=== PATIENT | male | born 1975 | race Native Hawaiian/Other Pacific Islander ===

== ENCOUNTER 2017-07-12 11:41 | Inpatient (IN) | payer SELFPAY ==
[2017-07-12] VITALS (21 sets, daily range): BP systolic 99–128; BP diastolic 50–66; PULSE 74–96; RESP 14–28; TEMP 97.6–98.8; O2SAT 97–100
[~2017-07-12] VITALS: Ht 175.3 cm; Wt 76.9 kg
[~2017-07-12 11:41] MED LIST: HYDR-3133; POLY10O LEFT EYE; ULTR50TA PO
[2017-07-12] MEDS ORDERED: SIMV5TAB3 PO (12:06)
[2017-07-12] MEDS ORDERED: VIT D (12:06)
[2017-07-12] MEDS ORDERED: METF1000 PO (12:06)
[2017-07-12] MEDS ORDERED: LISI2.5T3 PO (12:06)
[2017-07-12] MEDS ORDERED: HYDR12.57 PO (12:06)
[2017-07-12] MEDS ORDERED: SODIUM CHLOR 0.9% 1000 ML INJ 1,000 ML IV SCH (12:13)
[2017-07-12] MEDS ORDERED: SODIUM CHLORIDE 0.9% FLUSH 10 ML FLUSH IVF PRN (12:15)
--- NOTE | 2017-07-12 12:22 | PD ---
HPI Chief Complaint: GI Complaint Time Seen by Provider: 11:51 Travel History International Travel<30 days: No Contact w/Intl Traveler<30days: No Traveled to known affect area: No History of Present Illness HPI STATES ONGOING EPISODES OF BLACK TARRY STOOLS OVER LAST 2 WEEKS BUT IT WAS INTERMITTENT AND WOULD RESOLVE...HOWEVER OVER LAST 2-3 DAYS C/O BLACK TARRY STOOLS HAVE BEEN MORE PERSISTENT OVER THE PAST FEW DAYS AND NOW HAS STARTED TO DEVELOP LIGHTHEADEDNESS AND GENERALIZED WEAKNESS PER PATIENT, STATES THAT HE HAS H/O HEMORRHOIDS, BUT THAT IT HAS NOT BEEN BRIGHT RED RECENTLY. DENIES FEVER /NUR/CP AT THIS POINT...NO ALLEVIATING/AGGRAVATING FACTORS PFSH Past Medical History Anxiety: Yes High Cholesterol: Yes Diabetes: Yes Patient Takes Glucophage: Yes Diminished Hearing: No GERD: Yes Hypertension: Yes Tetanus Vaccination: < 5 Years Influenza Vaccination: No Social History Alcohol Use: Yes (4 MIXED DRINKS DAILY) Tobacco Use: No Substance Use: No Allergies-Medications (Allergen,Severity, Reaction): Coded Allergies: No Known Allergies (Verified , 07/12/17) Reported Meds & Prescriptions Reported Meds & Active Scripts Active Reported [Vit D] Metformin (Metformin HCl) 1,000 Mg Tab Unknown Dose PO DIRECTED Simvastatin 5 Mg Tab Unknown Dose PO DAILY Lisinopril 2.5 Mg Tab Unknown Dose PO DAILY Hydrochlorothiazide 12.5 Mg Cap Unknown Dose PO DIRECTED Review of Systems Except as stated in HPI: all other systems reviewed are Neg HENT: Positive: Lightheadedness Gastrointestinal: Positive: Abdominal Pain, Other (BLACK TARRY STOOL) Physical Exam Narrative GENERAL: SKIN: Warm and dry. HEAD: Atraumatic. Normocephalic. EYES: Pupils equal and round. No scleral icterus. No injection or drainage. ENT: No nasal bleeding or discharge. Mucous membranes pink and moist. NECK: Trachea midline. No JVD. CARDIOVASCULAR: Regular rate and rhythm. RESPIRATORY: No accessory muscle use. Clear to auscultation. Breath sounds equal bilaterally. GASTROINTESTINAL: Abdomen soft, non-tender, nondistended. MARCUS SHEPARD IN ROOM FOR RECTAL EXAM: FOUND INTACT HEMORRHOID, WITHOUT THROMBUS NOR ANY ACTIVE BLEEDING FROM HEMORRHOID..GUAIAC POSITIVE WITHOUT HEMATOCHEZIA MUSCULOSKELETAL: Extremities without clubbing, cyanosis, or edema. No obvious deformities. NEUROLOGICAL: Awake and alert. No obvious cranial nerve deficits. Motor grossly within normal limits. Five out of 5 muscle strength in the arms and legs. Normal speech. PSYCHIATRIC: Appropriate mood and affect; insight and judgment normal. Data Data Last Documented VS Orders Orders Complete Blood Count With Diff (07/12/17 12:13) Comprehensive Metabolic Panel (07/12/17 12:13) Lipase (07/12/17 12:13) Prothrombin Time / Inr (Pt) (07/12/17 12:13) Act Partial Throm Time (Ptt) (07/12/17 12:13) Type And Screen (07/12/17 12:13) Ecg Monitoring (07/12/17 12:13) Iv Access Insert/Monitor (07/12/17 12:13) Oximetry (07/12/17 12:13) Sodium Chlor 0.9% 1000 Ml Inj (Ns 1000 M (07/12/17 12:13) Sodium Chloride 0.9% Flush (Ns Flush) (07/12/17 12:15) Ct Abd/Pel W/O Iv Contrast (07/12/17 12:13) Red Blood Cells (Rbc) (07/12/17 12:46) Blood Product Administration (07/12/17 12:46) Sodium Chlor 0.9% 250 Ml Inj (Ns 250 Ml (07/12/17 13:00) Hydromorphone Pf Inj (Dilaudid Pf Inj) (07/12/17 13:00) Ondansetron Inj (Zofran Inj) (07/12/17 13:00) Sodium Chlor 0.9% 1000 Ml Inj (Ns 1000 M (07/12/17 13:00) Sodium Chloride 0.9... W/Pantoprazole In (07/12/17 13:07) Sodium Chloride 0.9... W/Pantoprazole In (07/12/17 13:07) Admit Order (Ed Use Only) (07/12/17 14:18) Labs Laboratory Tests Test 07/12/17 12:15 White Blood Count 5.4 TH/MM3 Red Blood Count 2.48 MIL/MM3 Hemoglobin 5.2 GM/DL Hematocrit 16.9 % Mean Corpuscular Volume 68.2 FL Mean Corpuscular Hemoglobin 21.1 PG Mean Corpuscular Hemoglobin Concent 31.0 % Red Cell Distribution Width 18.2 % Platelet Count 138 TH/MM3 Mean Platelet Volume 6.9 FL Neutrophils (%) (Auto) 67.9 % Lymphocytes (%) (Auto) 17.8 % Monocytes (%) (Auto) 12.4 % Eosinophils (%) (Auto) 1.0 % Basophils (%) (Auto) 0.9 % Neutrophils # (Auto) 3.6 TH/MM3 Lymphocytes # (Auto) 1.0 TH/MM3 Monocytes # (Auto) 0.7 TH/MM3 Eosinophils # (Auto) 0.1 TH/MM3 Basophils # (Auto) 0.0 TH/MM3 CBC Comment AUTO DIFF Differential Comment AUTO DIFF CONFIRMED Platelet Estimate LOW Platelet Morphology Comment NORMAL Blood Smear Pathologist Review Haptoglobin 147 MG/DL Prothrombin Time 11.5 SEC Prothromb Time International Ratio 1.0 RATIO Activated Partial Thromboplast Time 24.8 SEC Blood Urea Nitrogen 21 MG/DL Creatinine 1.70 MG/DL Random Glucose 93 MG/DL Total Protein 8.6 GM/DL Albumin 3.6 GM/DL Calcium Level 8.6 MG/DL Alkaline Phosphatase 121 U/L Aspartate Amino Transf (AST/SGOT) 69 U/L Alanine Aminotransferase (ALT/SGPT) 24 U/L Total Bilirubin 1.0 MG/DL Sodium Level 128 MEQ/L Potassium Level 2.8 MEQ/L Chloride Level 91 MEQ/L Carbon Dioxide Level 23.6 MEQ/L Anion Gap 13 MEQ/L Estimat Glomerular Filtration Rate 44 ML/MIN Phosphorus Level 2.8 MG/DL Magnesium Level 1.9 MG/DL Iron Level 20 MCG/DL Total Iron Binding Capacity 561 MCG/DL Percent Iron Saturation 3.6 % Ferritin 10 NG/ML Lactate Dehydrogenase 159 U/L Lipase 866 U/L Vitamin B12 Level 385 PG/ML Folate 6.8 NG/ML MDM Medical Decision Making Medical Screen Exam Complete: Yes Emergency Medical Condition: Yes Medical Record Reviewed: Yes Differential Diagnosis COLITIS V DIVERTIC V GI BLEED Narrative Course PATIENT WAS STARTED ON PPI DRIP, AND ONCE FOUND TO BE ANEMIC, TYPE AND CROSSED URGENTLY AND ORDERED TO RECEIVE TRANSFUSION, PATIENT WAS GIVEN IVF BOLUS TO MAINTAIN AND IMPROVE HIS SLOWLY DROPPING BLOOD PRESSURE. Critical Care Narrative CRITICAL CARE NOTE: With evaluation of the patient, labs, EKG, receipt of radiologic studies, administration of medications, reevaluation the patient and discussion of the patient with the admitting physicians, the total critical care time was [60] minutes. Time to perform other separately billable procedures was not included in the critical care time. Diagnosis Primary Impression: GI BLEED Additional Impression: SEVERE SYMPTOMATIC ANEMIA Admitting Information Admitting Physician Requests: Admit Dipesh Saleh MD Jul 12, 2017 12:22
[2017-07-12 12:29] LABS: AUTOMATED NEUTROPHIL # 3.6 TH/MM3 (1.8-7.7); BASOPHIL % 0.9 % (0.0-2.0); EOSINOPHIL # 0.1 TH/MM3 (0-0.4); LYMPH % 17.8 % (9.0-44.0); MEAN CELL VOLUME 68.2 FL (80.0-100.0); MEAN CORPUSCULAR HEMOGLOBIN 21.1 PG (27.0-34.0); MONO % 12.4 % (0.0-8.0); NEUT % 67.9 % (16.0-70.0); PLATELET COUNT 138 TH/MM3 (150-450); RED BLOOD COUNT 2.48 MIL/MM3 (4.50-5.90); RED CELL DISTRIBUTION WIDTH 18.2 % (11.6-17.2); WHITE BLOOD COUNT 5.4 TH/MM3 (4.0-11.0)
[2017-07-12 12:32] LABS: HEMO FLAGS AUTO DIFF
[2017-07-12 12:34] LABS: CHLORIDE 91 MEQ/L (98-107); SODIUM (NA) 128 MEQ/L (136-145)
[2017-07-12 12:35] LABS: HEMATOCRIT 16.9 % (39.0-51.0)
[2017-07-12 12:37] LABS: APTT (PATIENT) 24.8 SEC (24.3-30.1); POTASSIUM 2.8 MEQ/L (3.5-5.1); PROTHROMBIN TIME - PATIENT 11.5 SEC (9.8-11.6)
[2017-07-12 12:43] LABS: ALT (GPT) 24 U/L (12-78); ANION GAP 13 MEQ/L (5-15); AST (GOT) 69 U/L (15-37); BICARBONATE 23.6 MEQ/L (21.0-32.0); BLOOD UREA NITROGEN 21 MG/DL (7-18); GLOMERULAR FILTRATION RATE 44 ML/MIN (>89)
[2017-07-12 12:46] LABS: ALKALINE PHOSPHATASE 121 U/L (45-117)
[2017-07-12] MEDS ORDERED: SODIUM CHLOR 0.9% 1000 ML INJ 1,000 ML IV ONE (13:00)
[2017-07-12] MEDS ORDERED: SODIUM CHLOR 0.9% 250 ML INJ 250 ML IV ONE (13:00)
[2017-07-12] MEDS ORDERED: HYDROmorphone HCL PF 1 MG/ML VIAL IV PUSH ONE (13:00)
[2017-07-12] MEDS ORDERED: ONDANSETRON HCL 4 MG/2 ML VIAL IV PUSH ONE (13:00)
[2017-07-12 13:02] LABS: PLATELET ESTIMATE SMEAR LOW (NORMAL); PLATELET MORPHOLOGY NORMAL (NORMAL); SCAN/DIFF AUTO DIFF CONFIRMED
[2017-07-12] MEDS ORDERED: PANTOPRAZOLE INJ 80 MG in SODIUM CHLORIDE 0.9% INJ 35 ML IV ONE (13:07)
--- NOTE | 2017-07-12 13:42 | RADRPT ---
EXAM DATE/TIME: 07/12/2017 13:20 [facility] COMPARISON: No previous studies available for comparison. INDICATIONS : Diffuse abdominal pain, weakness, and dark stool. ORAL CONTRAST: No oral contrast ingested. RADIATION DOSE: 9.44 CTDIvol (mGy) MEDICAL HISTORY : Hypertension. Gastroesophageal reflux disease. Diabetes. SURGICAL HISTORY : None. ENCOUNTER: Initial ACUITY: 2 weeks PAIN SCALE: 6/10 LOCATION: Bilateral abdomen TECHNIQUE: Volumetric scanning of the abdomen and pelvis was performed. Using automated exposure control and ad justment of the mA and/or kV according to patient size, radiation dose was kept as low as reasonably achievable to obtain optimal diagnostic quality images. DICOM format image data is available electro nically for review and comparison. FINDINGS: Lung bases are clear. There is moderate fatty replacement to the liver. The spleen, pancreas and adrenals unremarkable. Right and left kidneys appear normal. The region of the cecum and terminal ileum are unremarkable. Pelvic contents are unremarkable. Review of bone windows reveals mild degenerative changes in the lumbar spine. CONCLUSION: Mild fatty replacement to the liver. There is no free air or obstruction. I see no suspicious abdominal masses. Fernando Waller MD FACR on July 12, 2017 at 13:27 Board Certified Radiologist. This report was verified electronically.
[2017-07-12] MEDS: PANTOPRAZOLE INJ 80 MG in SODIUM CHLORIDE 0.9% INJ 100 ML IV SCH ×2 (14:34→23:30)
--- NOTE | 2017-07-12 14:53 | PD.PN.STU ---
Subjective Remarks History and Physical CC: GI Bleed HPI: 42yo male who was brought in the ER by his two cousins for progressive fatigue, weakness, low blood pressure, lightheadedness, and "dark red stools with light red streaks" for the last 2 1/2 weeks. He reports worsening of symptoms in the last 2 days which prompted his cousins to bring him to the ER. Pt. is on medication for hypertension but decided to hold them for the last 2days due to low blood pressure. Pt reports lightheadedness especially triggered by moving and head movements. Pt reports nausea, decreased appetite and subjectively reports slimming 4 clothing sizes down (unintentional). His cousins report a 40lb weight loss in the last 3-4mo as well. Pt reports cough with clear sputum and chills. Denies NUR, chest pain, SOB, fever, vomiting, blood in sputum and urine. He has abdominal pain vaguely described aggravating or relieving factors, but level 6 and not better with Prilosec. PMH: hypertension, depression, dyslipidemia, diabetes mellitus type 2 PSH: colonoscopy in December 2015 with a colonic tear and upper endoscopy [address] Bolaños FH: mother is living with HTN, DM 2, dyslipidemia. father is living with HTN and dyslipidemia SH: smoked 1ppd for 15 yrs quit 4yrs ago. Consumes 4 mixed drinks/day, cut down from 6/day. Lives by himself. Recent travel to [facility] in April. Meds: Xanax, HCTZ, simvastatin, lisinopril, metformin, vit D supplements Allergies: NKDA Objective Vitals Vital Signs Date Time Temp Pulse Resp B/P (MAP) Pulse Ox O2 Delivery O2 Flow Rate FiO2 07/12/17 14:16 86 16 112/51 (71) 99 Room Air 07/12/17 13:48 80 16 120/63 (82) 97 Room Air 07/12/17 12:49 84 16 100/53 (69) 07/12/17 12:17 100 Room Air 07/12/17 11:45 98.0 93 16 99/54 (69) 100 I/O 07/11/17 07/11/17 07/11/17 07/12/17 07/12/17 07/12/17 07:00 15:00 23:00 07:00 15:00 23:00 Intake Total 1110 ml Balance 1110 ml Intake IV Total 1110 ml Result Diagram: 07/12/17 1215 07/12/[address] abd pelvis shows fatty liver Objective Remarks GENERAL: pleasant, well-developed male who appeared tired but was in no acute distress SKIN: Warm and dry. HEAD: Atraumatic. Normocephalic. EYES: STEFANIA, EOMI. Mild scleral icterus, pale conjunctiva. No injection or drainage. ENT: No nasal bleeding or discharge. Mucous membranes pink and moist. NECK: Trachea midline. No JVD. CARDIOVASCULAR: Regular rate and rhythm with no murmurs, gallops, or rubs. RESPIRATORY: CTAB. No accessory muscle use. GASTROINTESTINAL: Abdomen soft, non-tender, nondistended. MUSCULOSKELETAL: Pale nail beds. Capillary refill within 2s. No edema. No obvious deformities. NEUROLOGICAL: Awake and alert. No obvious cranial nerve deficits. Motor grossly within normal limits. Normal speech. PSYCHIATRIC: Appropriate mood and affect; insight and judgment normal. A/P Assessment and Plan 1. Anemia- secondary to GI bleed/acute blood loss, IV fluid resuscitation, blood transfusion, follow Hb, consult GI for endoscopy, start PPI, NPO 2. Elevated lipase- will follow nonspecific, cont bowel rest, repeat lipase 3. Elevated LFT's- poss to alcohol use, hepatitis, gallstones. order hep panel, follow labs 4. Hypokalemia- replace and follow trend, add Mg 5. Hyponatremia- cont IV fluids, follow trend 6. Hypotension- poss from dehydration, cont IV fluids, cont to hold hypertension medication 7. Acute kidney injury- poss prerenal, cont hydration, to follow if no improvement further w/u to follow 8. Abdominal pain- cont IV narcotics for pain, w/u in progress 9. Alcohol abuse- pt advised to discontinue alcohol, ciwa protocol 10. DM type 2- place on SSI, monitor blood glucose levels while NPO, Medical Decision Making Impression and Plan The exam, history, and the medical decision-making described in the above note were completed with the assistance of the student. I reviewed and agree with the findings presented. I attest that I had a [id number] encounter with the patient on the same day, and personally performed and documented my assessment and findings in the medical record. ER MD Rectal + guaiac, on my exam no gross bleeding, no fissure discussed with patient, ER MD, Family and FISH SMOKER Karly Lama M3 Jul 12, 2017 14:53 Almaz Hussein MD Jul 12, 2017 15:59
[2017-07-12] MEDS ORDERED: LORazepam 1 MG TAB PO PRN (15:45)
[2017-07-12] MEDS ORDERED: GLUCAGON 1 MG/ML VIAL OTHER PRN (15:45)
[2017-07-12] MEDS ORDERED: DEXTROSE 50% IN WATER 50 ML VIAL(D50) IV PUSH PRN (15:45)
[2017-07-12] MEDS ORDERED: FLUMAZENIL 0.5 MG/5 ML VIAL IV PUSH PRN (15:45)
[2017-07-12] MEDS ORDERED: LORazepam 2 MG/ML VIAL IV PUSH PRN ×4 (15:45)
[2017-07-12] MEDS ORDERED: LORazepam 2 MG TAB PO PRN (15:45)
[2017-07-12 16:13] LABS: MAGNESIUM 1.9 MG/DL (1.5-2.5)
[2017-07-12] MEDS ORDERED: POTASSIUM PHOSPHATE INJ 30 MMOL in SODIUM CHLOR 0.9% 250 ML INJ 250 ML IV ONE (17:00)
[2017-07-12] MEDS: HYDROmorphone HCL PF 1 MG/ML VIAL IV PUSH PRN ×2 (17:06→21:53)
[2017-07-12] MEDS ORDERED: CHLORHEXIDINE GLUCONATE 2 % 1 PACK (2 CLOTHS)(extra cloths) TOPICAL PRN (22:45)
[2017-07-13] VITALS (21 sets, daily range): BP systolic 100–141; BP diastolic 59–79; PULSE 69–96; RESP 16–28; TEMP 97.6–98.6; O2SAT 98–99
[2017-07-13] MEDS ORDERED: POTASSIUM CHLORIDE 20 MEQ CONTROLLED RELEASE TAB PO ONE
[2017-07-13] MEDS ORDERED: hydrOXYzine HCL 10 MG TAB PO ONE
[2017-07-13] MEDS: SODIUM CHLOR 0.9% 1000 ML INJ 1,000 ML IV SCH ×3 (00:14→16:16)
[2017-07-13] MEDS: POTASSIUM CHLOR 20 MEQ PREMIX 100 ML IV SCH ×2 (00:14→02:12)
[2017-07-13] MEDS: HYDROmorphone HCL PF 1 MG/ML VIAL IV PUSH PRN ×6 (02:11→22:26)
[2017-07-13 02:27] LABS: AUTOMATED NEUTROPHIL # 3.9 TH/MM3 (1.8-7.7); BASOPHIL % 0.7 % (0.0-2.0); EOSINOPHIL % 0.8 % (0.0-4.0); HEMATOCRIT 24.8 % (39.0-51.0); LYMPH % 11.8 % (9.0-44.0); LYMPHOCYTE # 0.6 TH/MM3 (1.0-4.8); MEAN CELL VOLUME 76.8 FL (80.0-100.0); MEAN CORPUSCULAR HEMOGLOBIN 24.9 PG (27.0-34.0); MEAN CORPUSCULAR HGB CONC 32.5 % (32.0-36.0); MONO % 10.5 % (0.0-8.0); NEUT % 76.2 % (16.0-70.0); PLATELET COUNT 116 TH/MM3 (150-450); RED BLOOD COUNT 3.23 MIL/MM3 (4.50-5.90); RED CELL DISTRIBUTION WIDTH 21.1 % (11.6-17.2)
[2017-07-13 02:45] LABS: HEMO FLAGS AUTO DIFF
[2017-07-13 03:16] LABS: OVALOCYTES 1+ (NORMAL); PLATELET ESTIMATE SMEAR LOW (NORMAL); PLATELET MORPHOLOGY NORMAL (NORMAL); SCAN/DIFF AUTO DIFF CONFIRMED
[2017-07-13 03:20] LABS: LDH SERUM 159 U/L (87-241); TRANSFERRIN IRON PROFILE 401 MG/DL (200-360)
[2017-07-13 03:45] LABS: FERRITIN 10 NG/ML (26-388)
[2017-07-13] MEDS: CHLORHEXIDINE GLUCONATE 2 % 1 PACK (2 CLOTHS)(taper/protocol) TOPICAL SCH (04:00)
[2017-07-13 06:55] LABS: AUTOMATED NEUTROPHIL # 3.7 TH/MM3 (1.8-7.7); BASOPHIL % 0.5 % (0.0-2.0); EOSINOPHIL # 0.1 TH/MM3 (0-0.4); EOSINOPHIL % 1.1 % (0.0-4.0); HEMATOCRIT 24.2 % (39.0-51.0); LYMPHOCYTE # 0.8 TH/MM3 (1.0-4.8); MEAN CELL VOLUME 78.5 FL (80.0-100.0); MEAN CORPUSCULAR HEMOGLOBIN 25.9 PG (27.0-34.0); MONO % 10.4 % (0.0-8.0); PLATELET COUNT 106 TH/MM3 (150-450); RED BLOOD COUNT 3.08 MIL/MM3 (4.50-5.90); RED CELL DISTRIBUTION WIDTH 21.4 % (11.6-17.2); WHITE BLOOD COUNT 5.1 TH/MM3 (4.0-11.0)
[2017-07-13 06:56] LABS: BICARBONATE 25.9 MEQ/L (21.0-32.0); MAGNESIUM 1.9 MG/DL (1.5-2.5); POTASSIUM 4.4 MEQ/L (3.5-5.1)
[2017-07-13 07:10] LABS: HEMO FLAGS DIFF FINAL
[2017-07-13] MEDS ORDERED: INFLUENZA VIRUS VACCINE (QUADRIVALENT) 0.5 ML SYR IM ONE (10:00)
[2017-07-13] MEDS: PANTOPRAZOLE INJ 80 MG in SODIUM CHLORIDE 0.9% INJ 100 ML IV SCH ×2 (10:09→21:27)
--- NOTE | 2017-07-13 10:14 | PD.PN.STU ---
Subjective Remarks Pt is a 42y M who was brought in to the ER on 07/12/17 by his cousins due to fatigue, weakness, and blood in the stools. Pt received fluid and blood resuscitation (3 units of pRBC) last night and reports feeling better (hg has gone from 5.2 to 8.1) but still experiencing vague abdominal pain, fatigue, and lightheadedness. Pt reports that the dizziness when ambulating or moving his head has improved. Pt denies CP, NUR, SOB, blood in the urine when voiding or when coughing. Objective Vitals Vital Signs Date Time Temp Pulse Resp B/P (MAP) Pulse Ox O2 Delivery O2 Flow Rate FiO2 07/13/17 08:00 69 07/13/17 06:00 69 07/13/17 04:00 72 07/13/17 02:31 78 07/13/17 00:20 97.6 77 22 106/66 98 07/13/17 00:00 76 07/12/17 22:00 80 07/12/17 21:02 98.4 77 22 110/62 99 07/12/17 20:47 98.4 75 22 112/64 98 07/12/17 20:30 98.3 81 22 109/64 99 07/12/17 20:00 78 07/12/17 17:51 98.8 87 24 113/65 100 07/12/17 17:30 98.2 88 28 101/58 99 07/12/17 16:17 07/12/17 16:03 91 16 116/60 (78) 100 Room Air 07/12/17 15:48 98.1 92 16 112/56 07/12/17 15:33 98.2 94 16 115/54 98 07/12/17 15:29 96 16 111/50 (70) 100 Room Air 07/12/17 15:10 98.1 85 14 128/56 98 07/12/17 14:16 86 16 112/51 (71) 99 Room Air 07/12/17 13:48 80 16 120/63 (82) 97 Room Air 07/12/17 12:49 84 16 100/53 (69) 07/12/17 12:17 100 Room Air 07/12/17 11:45 98.0 93 16 99/54 (69) 100 I/O 10/907/12/17 07/12/17 07/13/17 07/13/17 07/13/17 07:00 15:00 23:00 07:00 15:00 23:00 Intake Total 1110 ml 890 ml 1517 ml Output Total 300 ml 1000 ml Balance 1110 ml 590 ml 517 ml Intake Oral 100 ml IV Total 1110 ml 1067 ml Packed Cells 800 ml 320 ml Blood Product IV Normal Saline Flush 90 ml 30 ml Output Urine Total 300 ml 1000 ml Stool Total 0 ml # Voids 2 4 Result Diagram: 07/13/17 0550 07/13/17 0550 Other Results Laboratory Tests Test 07/12/17 12:15 07/12/17 20:25 07/12/17 22:00 07/13/17 02:00 Red Blood Count 2.48 MIL/MM3 (4.50-5.90) 3.23 MIL/MM3 (4.50-5.90) Hemoglobin 5.2 GM/DL (13.0-17.0) 8.1 GM/DL (13.0-17.0) Hematocrit 16.9 % (39.0-51.0) 24.8 % (39.0-51.0) Mean Corpuscular Volume 68.2 FL (80.0-100.0) 76.8 FL (80.0-100.0) Mean Corpuscular Hemoglobin 21.1 PG (27.0-34.0) 24.9 PG (27.0-34.0) Mean Corpuscular Hemoglobin Concent 31.0 % (32.0-36.0) Red Cell Distribution Width 18.2 % (11.6-17.2) 21.1 % (11.6-17.2) Platelet Count 138 TH/MM3 (150-450) 116 TH/MM3 (150-450) Mean Platelet Volume 6.9 FL (7.0-11.0) Monocytes (%) (Auto) 12.4 % (0.0-8.0) 10.5 % (0.0-8.0) Platelet Estimate LOW (NORMAL) LOW (NORMAL) Blood Urea Nitrogen 21 MG/DL (7-18) Creatinine 1.70 MG/DL (0.60-1.30) Total Protein 8.6 GM/DL (6.4-8.2) Alkaline Phosphatase 121 U/L (45-117) Aspartate Amino Transf (AST/SGOT) 69 U/L (15-37) Sodium Level 128 MEQ/L (136-145) Potassium Level 2.8 MEQ/L (3.5-5.1) Chloride Level 91 MEQ/L (98-107) Estimat Glomerular Filtration Rate 44 ML/MIN (>89) Iron Level 20 MCG/DL (65-175) Total Iron Binding Capacity 561 MCG/DL (250-450) Percent Iron Saturation 3.6 % (20-50) Ferritin 10 NG/ML (26-388) Lipase 866 U/L (73-393) Neutrophils (%) (Auto) 76.2 % (16.0-70.0) Lymphocytes # (Auto) 0.6 TH/MM3 (1.0-4.8) Ovalocytes 1+ (NORMAL) Test 07/13/17 05:50 Red Blood Count 3.08 MIL/MM3 (4.50-5.90) Hemoglobin 8.0 GM/DL (13.0-17.0) Hematocrit 24.2 % (39.0-51.0) Mean Corpuscular Volume 78.5 FL (80.0-100.0) Mean Corpuscular Hemoglobin 25.9 PG (27.0-34.0) Red Cell Distribution Width 21.4 % (11.6-17.2) Platelet Count 106 TH/MM3 (150-450) Neutrophils (%) (Auto) 72.0 % (16.0-70.0) Monocytes (%) (Auto) 10.4 % (0.0-8.0) Lymphocytes # (Auto) 0.8 TH/MM3 (1.0-4.8) Calcium Level 7.7 MG/DL (8.5-10.1) Sodium Level 135 MEQ/L (136-145) Estimat Glomerular Filtration Rate 60 ML/MIN (>89) Imaging Last Impressions Abdomen/Pelvis CT 07/12/17 1213 Signed Impressions: Service Date/Time: Wednesday, July 12, 2017 13:20 - CONCLUSION: Mild fatty replacement to the liver. There is no free air or obstruction. I see no suspicious abdominal masses. Fernando Waller MD FACR Objective Remarks GENERAL: well-developed male who was in NAD SKIN: Warm and dry. HEAD: Atraumatic. Normocephalic. EYES: STEFANIA, EOMI. non icteric improved. pale conjunctiva No injection or drainage. ENT: No nasal bleeding or discharge. Mucous membranes pink and moist. NECK: Trachea midline. No JVD. CARDIOVASCULAR: Regular rate and rhythm with no murmurs, gallops, rubs. RESPIRATORY: No accessory muscle use. Clear to auscultation. Breath sounds equal bilaterally. GASTROINTESTINAL: Abdomen soft, non-tender, nondistended. Hepatic and splenic margins not palpable. MUSCULOSKELETAL: Pale nail beds slightly improved. Able to move all extremities with no difficulty. No clubbing, cyanosis, or edema. No obvious deformities. NEUROLOGICAL: Awake and alert. No obvious cranial nerve deficits. Motor grossly within normal limits. Five out of 5 muscle strength in the arms and legs. Normal speech. PSYCHIATRIC: Appropriate mood and affect; insight and judgment normal. Procedures EGD scheduled for later this afternoon A/P Assessment and Plan 1. Anemia- improved after fluid and blood resuscitation. f/u EGD results, Hg 8.1 ,monitor for further transfusion needs; follow up hematology consult due to abnormal indicies; endoscopy today 2. Elevated lipase- follow labs, may be due to etoh v bleeding 3. Elevated LFT's- poss to alcohol use, hepatitis. f/u hep panel and lab results 4. Hypokalemia- resolved 5. Hyponatremia- improved. cont IV fluids, follow trend 6. Hypotension- improved.cont to hold hypertension medication, follow trend 7. Acute kidney injury- BUN and Cr normalized. cont hydration, 8. Abdominal pain- symptomatic, cont IV narcotics for pain, w/u in progress 9. Alcohol abuse- pt advised to discontinue alcohol, ciwa protocol 10. DM type 2- place on SSI, monitor blood glucose levels while NPO, home metformin held 11. Hypocalcemia- poss secondary to blood transfusion. supplement as needed, follow labs Medical Decision Making Impression and Plan The exam, history, and the medical decision-making described in the above note were completed with the assistance of the student. I reviewed and agree with the findings presented. I attest that I had a [id number] encounter with the patient on the same day, and personally performed and documented my assessment and findings in the medical record. Care plan discussed with patient, family and senior pastor Hg better Ct reviewed with [facility] and pt Karly Lama M3 Jul 13, 2017 10:14 Almaz Hussein MD Jul 13, 2017 10:55
--- NOTE | 2017-07-13 11:59 | MB ---
cc: RENE GONG MD DATE OF CONSULTATION 07/13/2017 DATE OF 1975 HISTORY OF PRESENT ILLNESS Mr. Hernandez is a 42 year-old man with a past medical history of hypertension , depression, hyperlipemia, and type 2 diabetes mellitus who presented to the emergency room on July 12 with a two-week history of progressively worsening fatigue, weakness and lightheadedness. The two days leading up to admission his symptoms were very severe and prompted him to present to the emergency room. He also reports an unintentional 40-pound weight loss over the past several months. He also reports hematochezia. Hematochezia has been intermittent for several months. He reports a colonoscopy in the past which revealed a tear in his colon. ROS: Negative except for those items mentioned in the HPI. PAST MEDICAL HISTORY 1. High blood pressure 2. Depression 3. Hyperlipidemia 4. Type 2 diabetes mellitus PAST SURGICAL HISTORY 1. Colonoscopy in December 2015 with a colonic tear 2. Upper endoscopy six months later with Dr. Bolaños. FAMILY HISTORY Mother with hypertension, type 2 diabetes mellitus, dyslipidemia. Father with hypertension and dyslipidemia. SOCIAL HISTORY Smokes one pack per day for 15 years and quit four years ago. Has four mixed drinks a day. He lives by himself. He has a good support system in this area. HOME MEDICATIONS 1. Xanax 2. Hydrochlorothiazide 3. Simvastatin 4. Lisinopril 5. Metformin 6. Vitamin D supplementation IMAGING STUDIES CT chest, abdomen, pelvis from July 12, 2017 showed clear lung bases, fatty replacement of the liver, spleen, pancreas and adrenals are unremarkable. Right and left kidneys appear normal. Cecum and terminal ileum were unremarkable. Pelvic contents are unremarkable. Review of bone windows revealed mild degenerative changes in the lumbar spine. LABORATORY STUDIES White blood cell count of 5.4, hemoglobin 5.2, platelet count 138,000 with a normal differential, haptoglobin is 147. CBC from today at 2:00 a.m. shows a white blood cell count of 5, hemoglobin 8.1, platelet count 116. MCV on admission was 68.2. Coags are within normal limits. Chemistry studies show a sodium of 128, a potassium of 2.8, a creatinine of 1.7, AST is elevated at 69, alk phos was elevated at 121 and total protein is elevated at 8.6. Vitamin B12 and folate are within normal limits at 385 and 6.8. Today's CMP showed a sodium of 135, potassium of 4.4, creatinine of 1.3. Hepatitis studies are negative. He was transfused three units of red blood cells. PHYSICAL EXAMINATION GENERAL: Well-developed, well-nourished man in no distress. HEAD: Normocephalic, atraumatic. EYES: Pupils equal, round and reactive to light and accommodation. No scleral icterus. Throat with a clear oropharynx. NECK: Supple with no palpable lymphadenopathy. CARDIOVASCULAR: Regular rate and rhythm with no murmurs. LUNGS: Clear to auscultation bilaterally. GI: Soft, nontender, nondistended with bowel sounds present. EXTREMITIES: With no edema. NEUROLOGIC: Nonfocal. Alert and oriented. ASSESSMENT AND PLAN 1. Iron-deficiency anemia: From acute on chronic GI blood loss. Iron of 28, total iron-binding capacity elevated at 561, percent saturation low at 3.6 and ferritin low at 10. He has received three units of packed red blood cells with appropriate response. With the pack red blood cells, he has received approximately 750 mg of elemental iron. We will order IV iron sucrose for him to receive while inpatient. Discussed risks versus benefits of this medication with patient and will proceed with IV iron. Discussed oral iron supplementation in the outpatient setting; he declined as he was concerned regarding GI side effects 2. Thrombocytopenia. Uncertain of baseline in the outpatient setting. 138,000 on admission. Hepatitis studies are negative. Folate and B12 are within normal limits. No evidence of splenomegaly on imaging. Normal coag, haptoglobin, LDH. Hepatitis C negative. Alcohol with four mixed drinks a day can also be directly toxic to the bone marrow. 3. GI bleed. GI team following and plans for colonoscopy today. MD JENNIFER Torres/YOEL /11:18 AM /11:42 AM CELE[facility]INO
[2017-07-13] MEDS ORDERED: CALCIUM GLUCONATE INJ 1 GM in DEXTROSE 5% IN WATER 100ML INJ 100 ML IV ONE ×2 (12:00)
[2017-07-13] MEDS ORDERED: PROPOFOL 200 MG/20 ML AMP IV PUSH ONE (12:02)
--- NOTE | 2017-07-13 12:06 | GIPROC ---
[facility] [address] [place] [address], [id number] EGD PROCEDURE REPORT EXAM DATE: 07/13/2017 PATIENT NAME: Chung Hernandez MR #: [id number] BIRTHDATE: 1975 ATTENDING: Gwen Trejo MD ORDER #: [id number] LINOLEUM MECHANIC: Ned Long Pat STATUS: inpatient INDICATIONS: The patient is a 42 yr old male here for an EGD due to anemia, gi bleeding PROCEDURE PERFORMED: EGD w/ biopsy MEDICATIONS: None and Per Anesthesia. TOPICAL ANESTHETIC: none CONSENT: The patient understands the risks and benefits of the procedure and understands that these risks include, but are not limited to: sedation, allergic reaction, infection, perforation and/or bleeding. Alternative means of evaluation and treatment include, among others: physical exam, x-rays, and/or surgical intervention. The patient elects to proceed with this endoscopic procedure. medical equipment was checked for proper function. Hand hygiene and appropriate measures for infection prevention was taken. After the risks, benefits and alternatives of the procedure were thoroughly explained, Informed consent was verified, confirmed and timeout was successfully executed by the treatment team. The patient was anesthetized with topical anesthesia and the Pentax [id number] endoscope was introduced through the mouth and advanced to the second portion of the duodenum. Retroflexed views revealed a hiatal hernia The gastroscope was then slowly withdrawn and removed. Duodenum normal-biopsy gastritis antrum-biopsy esophagitis distal esophagus-biopsy. ADVERSE EVENTS: There were no complications. IMPRESSIONS: 1. Duodenum normal-biopsy gastritis antrum-biopsy esophagitis distal esophagus-biopsy 2. Retroflexed views revealed a hiatal hernia RECOMMENDATIONS: 1. Await biopsy results. Biopsy results will not be ready for 7-10 days. If you don't hear from us in two weeks, call our office for biopsy results. 2. Anti-reflux regimen 3. Continue PPI 4. Resume diet PATIENT CONDITION: stable DISPOSITION: Inpatient REPEAT EXAM: Return 3 years EGD Gwen Trejo MD eSigned: wGen Trejo MD 07/13/2017 12:05 PM cc:
[2017-07-13] MEDS ORDERED: CALCIUM GLUCONATE INJ 0.5 GM in DEXTROSE 5% IN WATER 100ML INJ 100 ML IV ONE ×2 (13:00)
--- NOTE | 2017-07-13 13:20 | EKG ---
Date Performed: 07/13/2017 Time Performed: 08:14:38 PTAGE: 42 years EKG: Sinus rhythm NORMAL ECG NO PREVIOUS TRACING DOCTOR: Ajith Sellers Interpretating Date/Time 07/13/2017 13:17:32
[2017-07-13] MEDS ORDERED: MAGNESIUM CITRATE SOLN 300 ML BTL PO ONE ×2 (14:00→18:00)
[2017-07-13] MEDS ORDERED: IRON SUCROSE INJ 200 MG in SODIUM CHLORIDE 0.9% INJ 100 ML IV ONE (18:00)
[2017-07-13 19:37] LABS: HEMATOCRIT 26.3 % (39.0-51.0)
[2017-07-13 19:55] LABS: REVIEW FLAG FINAL
--- NOTE | 2017-07-13 20:03 | MB ---
cc: ESTEVAN PADILLA M.D. DATE OF CONSULTATION 07/12/[address] Hussein. REASON FOR CONSULTATION Anemia, questionable GI bleed. HISTORY OF PRESENT ILLNESS Mr. Hernandez is a 42-year-old gentleman with history of alcohol use who came to the emergency room with increased fatigue, weakness and tiredness. The patient was noted to have significant anemia. Also, he reports having significant weight loss, approximately 40 pounds, for the last several months. The patient states he has decreased appetite, unable to tolerate food. He has a lot of reflux and regurgitation and poor appetite. He also reports having some black stools and a small amount of red blood per rectum. The patient was seen in our office last year and this year. The patient underwent a colonoscopy in 2015 which was negative. Also he underwent an upper endoscopy and colonoscopy in 2017 in December which was essentially unremarkable. No further investigations were performed. His last hemoglobin was around nine. Currently, is 5.6. He is a very poor historian and is quite agitated that everybody is asking him the same questions. PAST MEDICAL HISTORY 1. Anxiety, 2. High cholesterol, 3. Diabetes, 4. Reflux, 5. High blood pressure SOCIAL HISTORY Drinks alcohol, four mixed drinks daily, denies any smoking or drug use. ALLERGIES No known allergies. MEDICATIONS 1. Metformin. 2. Simvastatin. 3. Lisinopril. 4. Hydrochlorothiazide PHYSICAL EXAMINATION GENERAL: On clinical exam, the patient is sitting comfortably in bed in no acute distress. HEENT: Pupils equal, round, reactive to light and accommodation. NECK: No JVD. No lymphadenopathy. CHEST: Clear to the auscultation and palpation. CARDIOVASCULAR: S1, S2. No murmur. ABDOMEN: Soft, nontender. Bowel sounds are present. CONTAINER CRANE OPERATOR: Awake, alert, oriented x3. NEUROLOGIC: No focal signs identified. LABORATORY DATA Hemoglobin on admission 5.2, MCV 16.2, platelets 138, white count was 5.4. PT/INR normal. Magnesium 1.90, BUN 21, Potassium 2.8, sodium 128, AST 69, alkaline phosphatase 121. Lipase 866. Iron is 3.6, ferritin 10. IMAGING STUDIES The patient had a CT abdomen and pelvis which showed mild fatty replacement of the liver and no other suspicious masses. IMPRESSION 1. Mr. Hernandez is a 42-year-old gentleman admitted with symptomatic anemia, history of weight loss and GI bleed. No indication of active bleed at this time. 2. Microcytic anemia. The patient already had endoscopy and colonoscopy earlier this year and another colonoscopy in 2016, less likely source of bleeding is lower GI tract. In view of his use of alcohol, we need to rule out peptic ulcer disease, portal gastropathy or esophageal varices, also concern for possible small bowel pathology. 3. Elevated liver enzymes most likely secondary to alcohol. Hepatitis profile is pending. Elevated lipase most likely secondary to alcohol and fatty liver. No indication of a cirrhotic liver at this time. RECOMMENDATIONS Clear liquid diet, nothing by mouth after midnight, endoscopy in the morning. If this is negative, consider small-bowel follow-through or capsule endoscopy. Consult hematology, avoid alcohol and NSAIDS. I would like to thank Dr. Hussein for referring him to our office for consultation. Risks, benefits of the above procedure were discussed with the patient and he is agreeing with it. MD FLY eRstrepoB/SA /6:09 PM /7:44 PM CELESTINO
[2017-07-13] MEDS ORDERED: hydrOXYzine HCL 25 MG TAB PO ONE (23:45)
[2017-07-14] VITALS (36 sets, daily range): BP systolic 88–142; BP diastolic 53–85; PULSE 70–90; RESP 13–41; TEMP 98.6–99.7; O2SAT 98–100
[2017-07-14] MEDS: SODIUM CHLOR 0.9% 1000 ML INJ 1,000 ML IV SCH ×2 (03:44→15:25)
[2017-07-14] MEDS: CHLORHEXIDINE GLUCONATE 2 % 1 PACK (2 CLOTHS)(taper/protocol) TOPICAL SCH (03:44)
[2017-07-14] MEDS: HYDROmorphone HCL PF 1 MG/ML VIAL IV PUSH PRN ×4 (03:44→16:22)
[2017-07-14 04:49] LABS: AUTOMATED NEUTROPHIL # 4.5 TH/MM3 (1.8-7.7); BASOPHIL # 0.1 TH/MM3 (0-0.2); BASOPHIL % 0.9 % (0.0-2.0); EOSINOPHIL # 0.1 TH/MM3 (0-0.4); EOSINOPHIL % 1.5 % (0.0-4.0); HEMATOCRIT 22.7 % (39.0-51.0); HEMO FLAGS DIFF FINAL; LYMPH % 12.5 % (9.0-44.0); LYMPHOCYTE # 0.8 TH/MM3 (1.0-4.8); MEAN CELL VOLUME 78.6 FL (80.0-100.0); MEAN CORPUSCULAR HEMOGLOBIN 25.4 PG (27.0-34.0); MEAN CORPUSCULAR HGB CONC 32.3 % (32.0-36.0); MONO % 9.1 % (0.0-8.0); PLATELET COUNT 120 TH/MM3 (150-450); RED BLOOD COUNT 2.89 MIL/MM3 (4.50-5.90); RED CELL DISTRIBUTION WIDTH 21.3 % (11.6-17.2)
[2017-07-14 05:00] LABS: BICARBONATE 24.9 MEQ/L (21.0-32.0)
[2017-07-14] MEDS ORDERED: CALCIUM GLUCONATE 10% 1 GM/10 ML VIAL IV PUSH ONE (06:00)
[2017-07-14] MEDS ORDERED: CALCIUM GLUCONATE INJ 1 GM in DEXTROSE 5% IN WATER 100ML INJ 100 ML IV ONE ×2 (06:15)
[2017-07-14] MEDS: PANTOPRAZOLE INJ 80 MG in SODIUM CHLORIDE 0.9% INJ 100 ML IV SCH ×3 (08:11→21:30)
[2017-07-14] MEDS ORDERED: chlordiazePOXIDE 25 MG CAP PO PRN (08:30)
[2017-07-14] MEDS ORDERED: LORazepam 2 MG/ML VIAL IV PUSH PRN (08:30)
[2017-07-14 09:02] LABS: HEMATOCRIT 24.5 % (39.0-51.0)
[2017-07-14 09:07] LABS: REVIEW FLAG FINAL
[2017-07-14] MEDS: THIAMINE HCL 100 MG TAB PO SCH (09:26)
[2017-07-14] MEDS: FOLIC ACID 1 MG TAB PO SCH (09:26)
--- NOTE | 2017-07-14 15:33 | HHI.GIFU ---
Subjective Remarks Patient laying in bed comfortably, he is hungry, waiting for small bowel follow Objective Vitals I&O Vital Signs Date Time Temp Pulse Resp B/P (MAP) Pulse Ox O2 Delivery O2 Flow Rate FiO2 07/14/17 14:13 72 33 129/79 (96) 07/14/17 14:00 72 07/14/17 13:32 78 22 113/70 (84) 07/14/17 13:00 80 07/14/17 12:41 18 07/14/17 12:13 99.0 74 22 129/82 (98) 07/14/17 12:00 70 07/14/17 11:07 80 41 122/79 (93) 07/14/17 11:00 72 07/14/17 10:06 76 36 119/74 (89) 07/14/17 10:00 78 07/14/17 09:04 99.1 88 37 121/85 (97) 07/14/17 09:00 78 07/14/17 08:01 74 23 122/79 (93) 07/14/17 08:00 70 07/14/17 07:01 85 19 112/68 (83) 07/14/17 07:00 70 07/14/17 06:01 74 19 105/58 (74) 07/14/17 06:00 73 07/14/17 05:01 74 15 109/66 (80) 07/14/17 04:01 98.8 74 14 110/64 (79) 07/14/17 04:00 74 07/14/17 03:01 74 14 96/53 (67) 07/14/17 02:01 70 13 106/62 (77) 07/14/17 02:00 70 07/14/17 01:01 74 14 88/62 (71) 98 07/14/17 00:01 74 07/14/17 00:01 98.6 74 15 117/81 (93) 07/14/17 00:00 76 07/13/17 22:01 76 22 121/78 (92) 07/13/17 22:01 76 07/13/17 21:01 96 20 123/79 (94) 07/13/17 20:01 78 28 124/60 (81) 07/13/17 20:00 80 07/13/17 19:03 98.6 90 25 141/79 (99) 99 07/13/17 18:01 74 18 126/73 (90) 07/13/17 18:00 84 07/13/17 16:00 82 I/O 07/13/17 07/13/17 07/13/17 07/14/17 07/14/17 07/14/17 07:00 15:00 23:00 07:00 15:00 23:00 Intake Total 1517 ml 40 ml 1599 ml 1534 ml Output Total 1000 ml Balance 517 ml 40 ml 1599 ml 1534 ml Intake Oral 100 ml 360 ml 420 ml IV Total 1067 ml 40 ml 1239 ml 1114 ml Packed Cells 320 ml Blood Product IV Normal Saline Flush 30 ml Output Urine Total 1000 ml Stool Total 0 ml # Voids 4 4 4 # Bowel Movements 5 6 Laboratory Laboratory Tests Test 07/13/17 19:30 07/14/17 04:35 07/14/17 08:50 Hemoglobin 8.3 7.3 7.7 Hematocrit 26.3 22.7 24.5 White Blood Count 6.0 Red Blood Count 2.89 Mean Corpuscular Volume 78.6 Mean Corpuscular Hemoglobin 25.4 Mean Corpuscular Hemoglobin Concent 32.3 Red Cell Distribution Width 21.3 Platelet Count 120 Mean Platelet Volume 6.8 Neutrophils (%) (Auto) 76.0 Lymphocytes (%) (Auto) 12.5 Monocytes (%) (Auto) 9.1 Eosinophils (%) (Auto) 1.5 Basophils (%) (Auto) 0.9 Neutrophils # (Auto) 4.5 Lymphocytes # (Auto) 0.8 Monocytes # (Auto) 0.5 Eosinophils # (Auto) 0.1 Basophils # (Auto) 0.1 CBC Comment DIFF FINAL Differential Comment Blood Urea Nitrogen 10 Creatinine 1.00 Random Glucose 84 Calcium Level 7.8 Sodium Level 139 Potassium Level 4.0 Chloride Level 107 Carbon Dioxide Level 24.9 Anion Gap 7 Estimat Glomerular Filtration Rate 81 Physical Exam HEENT: Pupils round and reactive to light; normocephalic; atraumatic; no jaundice. Throat is clear. NECK: Neck is supple, no JVD, no lymphadenopathy. CHEST: Chest is clear to auscultation and percussion. CARDIAC: Regular rate and rhythm with no murmur gallop or rubs. ABDOMEN: Soft, nondistended, nontender; no hepatosplenomegaly; bowel sounds are present in all four quadrants. EXTREMITIES: No clubbing, cyanosis, or edema. SKIN: Normal; no rash; no jaundice. MEDICAL PROFESSIONALS: No focal deficits; alert and oriented times three. Assessment and Plan Plan 42-year-old male with anemia questionable etiology most likely gastritis and esophagitis on EGD, he had 2 colonoscopy in 2015 and 2016 only showing hemorrhoids I had a discussion with the patient about repeating the colonoscopy and the fact that most likely it will not show anything significant patient not interested in having a colonoscopy now which I agree with that We are waiting for small bowel follow-through Further plan depends on the finding Continue PPI May feet patient regular diet after small bowel follow-through, Clinton Bolaños MD Jul 14, 2017 15:33
--- NOTE | 2017-07-14 15:41 | PD.ONC.PN ---
Subjective Subjective Remarks no c/o Feels better after PRBC Objective Data Date Time Temp Pulse Resp B/P (MAP) Pulse Ox O2 Delivery O2 Flow Rate FiO2 07/14/17 14:13 72 33 129/79 (96) 07/14/17 14:00 72 07/14/17 13:32 78 22 113/70 (84) 07/14/17 13:00 80 07/14/17 12:41 18 07/14/17 12:13 99.0 74 22 129/82 (98) 07/14/17 12:00 70 07/14/17 11:07 80 41 122/79 (93) 07/14/17 11:00 72 07/14/17 10:06 76 36 119/74 (89) 07/14/17 10:00 78 07/14/17 09:04 99.1 88 37 121/85 (97) 07/14/17 09:00 78 07/14/17 08:01 74 23 122/79 (93) 07/14/17 08:00 70 07/14/17 07:01 85 19 112/68 (83) 07/14/17 07:00 70 07/14/17 06:01 74 19 105/58 (74) 07/14/17 06:00 73 07/14/17 05:01 74 15 109/66 (80) 07/14/17 04:01 98.8 74 14 110/64 (79) 07/14/17 04:00 74 07/14/17 03:01 74 14 96/53 (67) 07/14/17 02:01 70 13 106/62 (77) 07/14/17 02:00 70 07/14/17 01:01 74 14 88/62 (71) 98 07/14/17 00:01 74 07/14/17 00:01 98.6 74 15 117/81 (93) 07/14/17 00:00 76 07/13/17 22:01 76 22 121/78 (92) 07/13/17 22:01 76 07/13/17 21:01 96 20 123/79 (94) 07/13/17 20:01 78 28 124/60 (81) 07/13/17 20:00 80 07/13/17 19:03 98.6 90 25 141/79 (99) 99 07/13/17 18:01 74 18 126/73 (90) 07/13/17 18:00 84 07/13/17 16:00 82 07/14/17 07/14/17 07/14/17 07:00 15:00 23:00 Intake Total 1534 ml Balance 1534 ml Result Diagram: 07/14/17 0850 07/14/17 0435 Laboratory Results Laboratory Tests Test 07/13/17 19:30 07/14/17 04:35 07/14/17 08:50 Hemoglobin 8.3 GM/DL 7.3 GM/DL 7.7 GM/DL Hematocrit 26.3 % 22.7 % 24.5 % White Blood Count 6.0 TH/MM3 Red Blood Count 2.89 MIL/MM3 Mean Corpuscular Volume 78.6 FL Mean Corpuscular Hemoglobin 25.4 PG Mean Corpuscular Hemoglobin Concent 32.3 % Red Cell Distribution Width 21.3 % Platelet Count 120 TH/MM3 Mean Platelet Volume 6.8 FL Neutrophils (%) (Auto) 76.0 % Lymphocytes (%) (Auto) 12.5 % Monocytes (%) (Auto) 9.1 % Eosinophils (%) (Auto) 1.5 % Basophils (%) (Auto) 0.9 % Neutrophils # (Auto) 4.5 TH/MM3 Lymphocytes # (Auto) 0.8 TH/MM3 Monocytes # (Auto) 0.5 TH/MM3 Eosinophils # (Auto) 0.1 TH/MM3 Basophils # (Auto) 0.1 TH/MM3 CBC Comment DIFF FINAL Differential Comment Blood Urea Nitrogen 10 MG/DL Creatinine 1.00 MG/DL Random Glucose 84 MG/DL Calcium Level 7.8 MG/DL Sodium Level 139 MEQ/L Potassium Level 4.0 MEQ/L Chloride Level 107 MEQ/L Carbon Dioxide Level 24.9 MEQ/L Anion Gap 7 MEQ/L Estimat Glomerular Filtration Rate 81 ML/MIN Administered Medications Medications (Trade) Dose Ordered Sig/Radha Route PRN Reason Start Time Stop Time Status Last Admin Dose Admin Pantoprazole Sodium 80 mg/ Sodium Chloride 100 ml @ 10 mls/hr Q10H IV 07/12/17 13:07 07/14/17 17:00 07/14/17 08:11 Hydromorphone HCl (Dilaudid Pf Inj) 0.5 mg Q4H PRN IV PUSH pain 07/12/17 15:45 07/14/17 12:11 Sodium Chloride 1,000 ml @ 84 mls/hr [id number] IV 07/12/17 15:45 07/14/17 03:44 Miscellaneous Information Patient in critical care unit? Ass... [id number] .XX 07/12/17 22:45 07/12/17 22:45 Chlorhexidine Gluconate (Chlorhexidine 2% Cloth) 3 pack DAILY@04 TOPICAL 07/13/17 04:00 07/17/17 04:01 07/14/17 03:44 Thiamine HCl (Vitamin B1) 100 mg DAILY PO 07/14/17 09:00 07/14/17 09:26 Folic Acid (Folate) 1 mg DAILY PO 07/14/17 09:00 07/14/17 09:26 Objective Remarks GENERAL: Well-nourished, well-developed patient. SKIN: Warm and dry. HEAD: Normocephalic. EYES: No scleral icterus. No injection or drainage. NECK: Supple, trachea midline. No JVD or lymphadenopathy. LYMPHATIC: No adenopathy. CARDIOVASCULAR: Regular rate and rhythm without murmurs. RESPIRATORY: Breath sounds equal bilaterally. No accessory muscle use. GASTROINTESTINAL: Abdomen soft, non-tender, nondistended. EXTREMITIES: No cyanosis, or edema. MUSCULOSKELETAL: Adequate muscle tone. NEUROLOGICAL: No obvious focal deficit. Awake, alert, and oriented x3. PSYCHIATRIC: Appropriate mood and affect; insight and judgment normal. Assessment/Plan Assessment iron def anemia had 5 units PRBC Had 200 mg Iron sucrose will give another dose of Iron sucrose 500 mg IV today. Hg 7.7 today EGD yesterday = NEg For colonoscopy today. Will follow, Yossi Berry MD Jul 14, 2017 15:41
[2017-07-14] MEDS ORDERED: IRON SUCROSE 100 MG/5 ML VIAL IV PUSH ONE (15:45)
--- NOTE | 2017-07-14 17:53 | HHI.PR ---
Subjective Remarks Nursing reports that the patient says that his pain is constantly from a 7-10. Also states that his bowel movements are starting to become clear after the prep , no further bloody bowel movements. Patient himself says that he is in constant pain although he appears to be in no acute distress. is awaiting small bowel follow-through today Objective Vital Signs Date Time Temp Pulse Resp B/P (MAP) Pulse Ox O2 Delivery O2 Flow Rate FiO2 07/14/17 16:52 18 07/14/17 16:31 98.9 82 27 126/70 (88) 99 07/14/17 16:31 82 07/14/17 15:00 82 07/14/17 14:13 72 33 129/79 (96) 07/14/17 14:00 72 07/14/17 13:32 78 22 113/70 (84) 07/14/17 13:00 80 07/14/17 12:13 99.0 74 22 129/82 (98) 07/14/17 12:00 70 07/14/17 11:07 80 41 122/79 (93) 07/14/17 11:00 72 07/14/17 10:06 76 36 119/74 (89) 07/14/17 10:00 78 07/14/17 09:04 99.1 88 37 121/85 (97) 07/14/17 09:00 78 07/14/17 08:01 74 23 122/79 (93) 07/14/17 08:00 70 07/14/17 07:01 85 19 112/68 (83) 07/14/17 07:00 70 07/14/17 06:01 74 19 105/58 (74) 07/14/17 06:00 73 07/14/17 05:01 74 15 109/66 (80) 07/14/17 04:01 98.8 74 14 110/64 (79) 07/14/17 04:00 74 07/14/17 03:01 74 14 96/53 (67) 07/14/17 02:01 70 13 106/62 (77) 07/14/17 02:00 70 07/14/17 01:01 74 14 88/62 (71) 98 07/14/17 00:01 74 07/14/17 00:01 98.6 74 15 117/81 (93) 07/14/17 00:00 76 07/13/17 22:01 76 22 121/78 (92) 07/13/17 22:01 76 07/13/17 21:01 96 20 123/79 (94) 07/13/17 20:01 78 28 124/60 (81) 07/13/17 20:00 80 07/13/17 19:03 98.6 90 25 141/79 (99) 99 07/13/17 18:01 74 18 126/73 (90) 07/13/17 18:00 84 I/O 07/13/17 07/13/17 07/13/17 07/14/17 07/14/17 07/14/17 06:59 14:59 22:59 06:59 14:59 22:59 Intake Total 1517 ml 40 ml 1599 ml 1534 ml 110 ml Output Total 1000 ml Balance 517 ml 40 ml 1599 ml 1534 ml 110 ml Intake Oral 100 ml 360 ml 420 ml IV Total 1067 ml 40 ml 1239 ml 1114 ml 110 ml Packed Cells 320 ml Blood Product IV Normal Saline Flush 30 ml Output Urine Total 1000 ml Stool Total 0 ml # Voids 4 4 4 # Bowel Movements 5 6 Result Diagram: 07/14/17 0850 07/14/17 0435 Objective Remarks No acute distress, sitting in bed Abdomen is soft, nondistended, nontender, positive bowel sounds A/P Assessment and Plan 1. Anemia- EGD results gastritis and esophagitis. monitor for further transfusion needs; appreciate heme/onc recs, transfusing iron; small bowel follow thru today per GI. 2. Elevated lipase- follow labs, may be due to etoh v bleeding 3. Elevated LFT's- poss to alcohol use, hepatitis. f/u hep panel and lab results 5. Hyponatremia- improved. cont IV fluids, follow trend 6. Hypotension- stable today 8. Abdominal pain- symptomatic, switching to oral narcotics 9. Alcohol abuse- pt advised to discontinue alcohol, ciwa protocol 10. DM type 2- place on SSI, monitor blood glucose levels while NPO, home metformin held 11. Hypocalcemia- poss secondary to blood transfusion. supplement as needed, follow labs Torsten Fernandez MD Jul 14, 2017 17:53
[2017-07-14] MEDS ORDERED: SODIUM CHLOR 0.9% IV ONE (18:00)
[2017-07-14] MEDS ORDERED: IRON SUCROSE IV ONE (18:00)
--- NOTE | 2017-07-14 19:40 | RADRPT ---
EXAM DATE/TIME: 07/14/2017 16:15 [facility] COMPARISON: No previous studies available for comparison. INDICATIONS : Diffuse abdominal pain, weakness, and dark stool. FLUORO TIME: 0 minutes IMAGE COUNT: 10 CONTRAST: Entero Vu 24% Barium Sulfate (24% w/v, 20% w/w) IMAGING TIME(S): 15 min, 30 min, 45 min, 1 hr MEDICAL HISTORY : Hypertension. Gastroesophageal reflux disease. Diabetes. SURGICAL HISTORY : None. ENCOUNTER: Initial ACUITY: 2 weeks PAIN SCORE: 7/10 LOCATION: Bilateral abdomen. FINDINGS: Preliminary film is unremarkable. The stomach is grossly unremarkable. Examination of the small bowel demonstrates normal mucosal pattern involving the jejunum and ileum. There is no evidence of mass or obstruction. No intraluminal filling defects are identified. Small bowel transit time is normal at 60 minutes. Fluoroscopy of the abdomen and terminal ileum demonstrat es no abnormality. CONCLUSION: Unremarkable small bowel examination. Isaac Mcghee MD on July 14, 2017 at 19:38 Board Certified Radiologist. This report was verified electronically.
[2017-07-14] MEDS: MORPHINE SULFATE 15 MG TAB PO PRN (20:10)
[2017-07-15] VITALS (27 sets, daily range): BP systolic 104–143; BP diastolic 64–93; PULSE 70–104; RESP 12–51; TEMP 98.4–99.1; O2SAT 99
[2017-07-15] MEDS: MORPHINE SULFATE 15 MG TAB PO PRN ×4 (02:03→21:01)
[2017-07-15 03:50] LABS: IGA SERUM 907 mg/dL (81-463)
[2017-07-15] MEDS: CHLORHEXIDINE GLUCONATE 2 % 1 PACK (2 CLOTHS)(taper/protocol) TOPICAL SCH (04:00)
[2017-07-15 04:33] LABS: AUTOMATED NEUTROPHIL # 4.2 TH/MM3 (1.8-7.7); BASOPHIL # 0.1 TH/MM3 (0-0.2); EOSINOPHIL # 0.2 TH/MM3 (0-0.4); EOSINOPHIL % 2.5 % (0.0-4.0); HEMATOCRIT 24.5 % (39.0-51.0); LYMPH % 21.9 % (9.0-44.0); LYMPHOCYTE # 1.4 TH/MM3 (1.0-4.8); MEAN CELL VOLUME 77.7 FL (80.0-100.0); MEAN CORPUSCULAR HEMOGLOBIN 24.7 PG (27.0-34.0); MEAN CORPUSCULAR HGB CONC 31.8 % (32.0-36.0); MONO % 8.7 % (0.0-8.0); NEUT % 64.9 % (16.0-70.0); PLATELET COUNT 150 TH/MM3 (150-450); RED BLOOD COUNT 3.15 MIL/MM3 (4.50-5.90); RED CELL DISTRIBUTION WIDTH 22.3 % (11.6-17.2); WHITE BLOOD COUNT 6.5 TH/MM3 (4.0-11.0)
[2017-07-15 04:34] LABS: HEMO FLAGS AUTO DIFF
[2017-07-15 04:44] LABS: CHLORIDE 108 MEQ/L (98-107); POTASSIUM 3.8 MEQ/L (3.5-5.1); SODIUM (NA) 139 MEQ/L (136-145)
[2017-07-15 04:46] LABS: PLATELET ESTIMATE SMEAR NORMAL (NORMAL); PLATELET MORPHOLOGY NORMAL (NORMAL); SCAN/DIFF AUTO DIFF CONFIRMED
[2017-07-15 04:47] LABS: ANION GAP 8 MEQ/L (5-15); BICARBONATE 23.5 MEQ/L (21.0-32.0)
[2017-07-15 04:48] LABS: BLOOD UREA NITROGEN 7 MG/DL (7-18)
[2017-07-15 04:50] LABS: ALT (GPT) 18 U/L (12-78); AST (GOT) 46 U/L (15-37); GLOMERULAR FILTRATION RATE 73 ML/MIN (>89)
[2017-07-15 04:52] LABS: TOTAL BILIRUBIN ADULT 1.9 MG/DL (0.2-1.0)
[2017-07-15 04:53] LABS: ALKALINE PHOSPHATASE 98 U/L (45-117)
[2017-07-15] MEDS ORDERED: LIDOCAINE 4% CREAM 5 GM TUBE TOPICAL PRN (07:45)
[2017-07-15] MEDS: THIAMINE HCL 100 MG TAB PO SCH (08:00)
[2017-07-15] MEDS: FOLIC ACID 1 MG TAB PO SCH (08:00)
[2017-07-15] MEDS: PANTOPRAZOLE INJ 80 MG in SODIUM CHLORIDE 0.9% INJ 100 ML IV SCH (08:01)
[2017-07-15] MEDS: HYDROCORTISONE ACETATE 25 MG SUPP RECTAL SCH ×2 (09:00→21:00)
[2017-07-15] MEDS: PANTOPRAZOLE SOD 40 MG DELAYED RELEASE TAB PO SCH ×2 (10:17→21:01)
--- NOTE | 2017-07-15 12:04 | HHI.GIFU ---
GI Follow-up Note Consult Follow-up Subjective: Patient laying in bed comfortably,complaining of rectal pain, had further rectal bleeding .He had extensive work-up so far.colonoscopy in december 2016-showed diverticulosis , hemorrhoids grade 2, colonoscopy in 2015 showed internal hemorrhoids and anal fissure .He is a heavy drinker , possible contributing factor to his anemia.EGD -negative, SBFT negative, Ct as well unremarkable other than fatty liver.Rectal exam today painful Objective: PHYSICAL EXAMINATION: Vitals signs stable No fever Vital Signs Date Time Temp Pulse Resp B/P (MAP) Pulse Ox O2 Delivery O2 Flow Rate FiO2 07/15/17 11:00 80 48 138/74 (95) 07/15/17 10:00 74 17 131/77 (95) 07/15/17 10:00 74 07/15/17 09:01 18 07/15/17 09:00 82 34 139/93 (108) 07/15/17 09:00 82 07/15/17 08:00 100 07/15/17 08:00 98.4 100 41 137/82 (100) 07/15/17 07:00 86 07/15/17 07:00 76 28 118/79 (92) 07/15/17 06:00 70 12 111/71 (84) 07/15/17 06:00 75 07/15/17 05:00 78 24 121/80 (94) HEENT: Pupils round and reactive to light; normocephalic; atraumatic; no jaundice. Throat is clear. NECK: Neck is supple, no JVD, no lymphadenopathy. CHEST: Chest is clear to auscultation and percussion. CARDIAC: Regular rate and rhythm with no murmur gallop or rubs. ABDOMEN: Soft, nondistended, nontender; no hepatosplenomegaly; bowel sounds are present in all four quadrants. EXTREMITIES: No clubbing, cyanosis, or edema. SKIN: Normal; no rash; no jaundice. BUS AIDE: No focal deficits; alert and oriented times three. Available Data (labs, X- Rays, Procedues) : ASSESSMENT/PLAN: [id number] bleeding, etoh use rectal pain, bleeding-history of anal fissure, hemorrhoids-possible recurrence gerd , gastritis, weight loss weight loss secondary poor oral intake due to etoh use, reflux Recommendations bleeding scan consult colorectal surgery capsule endoscopy op avoid etoh ppi lidocaine, Proctozone cream await colorectal suregry opinion regarding repeating colonoscopy It was a pleasure seeing Chung Hernandez. Thank you for this consult. Entered by: Gwen Hardy MD Jul 15, 2017 12:04
[2017-07-15 13:51] LABS: ENDOMYSIAL AB TITER ND (<1:5); TISSUE TRANSGLUTAMINASE AB 2 U/mL (0-4)
--- NOTE | 2017-07-15 15:14 | RADRPT ---
EXAM DATE/TIME: 07/15/2017 12:17 [facility] COMPARISON: No previous studies available for comparison. INDICATIONS : Red blood in stool. DOSE: 20.1 mCi Tc99m Ultratag labeled red blood cells IV IMAGIN hrs MEDICAL HISTORY : Hypercholesterolemia. Hypertension. Diabetes mellitus type 2. SURGICAL HISTORY : None. ENCOUNTER: Initial ACUITY: 2 days PAIN SCALE: 2/10 LOCATION: Bilateral Abdomen. TECHNIQUE: Following the modified in vitro labeling of autologous red cells, dynamic continuous images were acqu ired for the specified interval. FINDINGS: BIODISTRIBUTION: There is a very good labeling of red cells without significant uptake in the gastric wall. There is good delineation of the blood pool of the spleen and abdominal vessels. BLEEDING: No episodes of active GI bleeding are observed during specified interval of continuous observation. CONCLUSION: No evidence of acute gastrointestinal bleed Ajith Peter MD on July 15, 2017 at 15:12 Board Certified Radiologist. This report was verified electronically.
--- NOTE | 2017-07-15 15:48 | HHI.PR ---
Subjective Remarks D/w with Dr. Trejo, bleeding scan today. Patient himself says he hasn't had any bloody bowel movements today, says he still in pain although he seems to be in some pain. Patient also vocalizes concern that he does not want to do metformin anymore after this hospitalization since he feels like he can't abuse to his diarrhea. Objective Vital Signs Date Time Temp Pulse Resp B/P (MAP) Pulse Ox O2 Delivery O2 Flow Rate FiO2 07/15/17 14:00 76 07/15/17 12:00 80 07/15/17 12:00 80 26 133/86 (102) 07/15/17 11:00 80 48 138/74 (95) 07/15/17 10:00 74 17 131/77 (95) 07/15/17 10:00 74 07/15/17 09:01 18 07/15/17 09:00 82 34 139/93 (108) 07/15/17 09:00 82 07/15/17 08:00 100 07/15/17 08:00 98.4 100 41 137/82 (100) 07/15/17 07:00 86 07/15/17 07:00 76 28 118/79 (92) 07/15/17 06:00 70 12 111/71 (84) 07/15/17 06:00 75 07/15/17 05:00 78 24 121/80 (94) 07/15/17 04:00 70 07/15/17 04:00 98.7 84 14 104/64 (77) 07/15/17 03:00 76 13 108/67 (81) 07/15/17 02:10 80 07/15/17 02:00 80 16 126/71 (89) 07/15/17 01:00 80 22 109/65 (80) 07/15/17 00:16 83 07/15/17 00:00 99.1 82 17 104/64 (77) 99 07/14/17 23:00 90 24 106/68 (81) 07/14/17 22:00 90 24 115/63 (80) 07/14/17 22:00 90 07/14/17 21:00 88 31 119/71 (87) 07/14/17 20:06 99.7 80 24 124/62 (82) 07/14/17 20:00 78 10/11/17 19:10 76 26 142/74 (96) 100 07/14/17 17:00 80 07/14/17 17:00 80 28 100 07/14/17 16:52 18 07/14/17 16:31 98.9 82 27 126/70 (88) 99 07/14/17 16:31 82 I/O 07/14/17 07/14/17 07/14/17 07/15/17 07/15/17 07/15/17 07:00 15:00 23:00 07:00 15:00 23:00 Intake Total 1534 ml 1065.5 ml 1709 ml 282 ml Balance 1534 ml 1065.5 ml 1709 ml 282 ml Intake Oral 420 ml 800 ml IV Total 1114 ml 1065.5 ml 909 ml 282 ml # Voids 4 3 3 # Bowel Movements 6 3 2 Result Diagram: 07/15/17 0422 07/15/17 0422 Imaging Last Impressions GI Bleed Scan Nuclear Medicine 07/15/17 0000 Signed Impressions: Service Date/Time: July 12:17 - CONCLUSION: No evidence of acute gastrointestinal bleed Ajith Peter MD Small Bowel X-Ray 07/14/17 0000 Signed Impressions: Service Date/Time: Friday, July 14, 2017 16:15 - CONCLUSION: Unremarkable small bowel examination. Isaac Mcghee MD Abdomen/Pelvis CT 07/12/17 1213 Signed Impressions: Service Date/Time: Wednesday, July 12, 2017 13:20 - CONCLUSION: Mild fatty replacement to the liver. There is no free air or obstruction. I see no suspicious abdominal masses. Fernando Waller MD FACR Objective Remarks No acute distress, sitting in bed Abdomen is soft, nondistended, nontender, positive bowel sounds A/P Assessment and Plan 1. Anemia- EGD results gastritis and esophagitis. monitor for further transfusion needs; appreciate heme/onc recs.small bowel follow is neg. bleeding scan, cbc to trend in AM, if neg anticipate d/c tomorrow. 2. Elevated lipase- follow labs, may be due to etoh v bleeding 3. Elevated LFT's- 2/2 ETOH 4. Abdominal pain- oral narcotics 5. Alcohol abuse- pt advised to discontinue alcohol, ciwa protocol 6. DM type 2- place on SS Torsten Fernandez MD Jul 15, 2017 15:48
--- NOTE | 2017-07-15 17:08 | PD.ONC.PN ---
Subjective Subjective Remarks Walking around room. Appears comfortable. Family at bedside. Objective Data Date Time Temp Pulse Resp B/P (MAP) Pulse Ox O2 Delivery O2 Flow Rate FiO2 07/15/17 16:10 80 07/15/17 16:00 80 27 132/72 (92) 07/15/17 15:09 78 19 143/88 (106) 07/15/17 14:00 76 07/15/17 13:00 78 126/76 (93) 07/15/17 12:00 80 07/15/17 12:00 80 26 133/86 (102) 07/15/17 11:00 80 48 138/74 (95) 07/15/17 10:00 74 17 131/77 (95) 07/15/17 10:00 74 07/15/17 09:01 18 07/15/17 09:00 82 34 139/93 (108) 07/15/17 09:00 82 07/15/17 08:00 100 07/15/17 08:00 98.4 100 41 137/82 (100) 07/15/17 07:00 86 07/15/17 07:00 76 28 118/79 (92) 07/15/17 06:00 70 12 111/71 (84) 07/15/17 06:00 75 07/15/17 05:00 78 24 121/80 (94) 07/15/17 04:00 70 07/15/17 04:00 98.7 84 14 104/64 (77) 07/15/17 03:00 76 13 108/67 (81) 07/15/17 02:10 80 07/15/17 02:00 80 16 126/71 (89) 07/15/17 01:00 80 22 109/65 (80) 07/15/17 00:16 83 07/15/17 00:00 99.1 82 17 104/64 (77) 99 07/14/17 23:00 90 24 106/68 (81) 07/14/17 22:00 90 24 115/63 (80) 07/14/17 22:00 90 07/14/17 21:00 88 31 119/71 (87) 07/14/17 20:06 99.7 80 24 124/62 (82) 07/14/17 20:00 78 07/14/17 19:10 76 26 142/74 (96) 100 07/14/17 17:00 80 07/14/17 17:00 80 28 100 07/15/17 07/15/17 07/15/17 06:59 14:59 22:59 Intake Total 1709 ml 282 ml Balance 1709 ml 282 ml Result Diagram: 07/15/17 0422 07/15/17 0422 Laboratory Results Laboratory Tests Test 07/15/17 04:22 White Blood Count 6.5 TH/MM3 Red Blood Count 3.15 MIL/MM3 Hemoglobin 7.8 GM/DL Hematocrit 24.5 % Mean Corpuscular Volume 77.7 FL Mean Corpuscular Hemoglobin 24.7 PG Mean Corpuscular Hemoglobin Concent 31.8 % Red Cell Distribution Width 22.3 % Platelet Count 150 TH/MM3 Mean Platelet Volume 7.1 FL Neutrophils (%) (Auto) 64.9 % Lymphocytes (%) (Auto) 21.9 % Monocytes (%) (Auto) 8.7 % Eosinophils (%) (Auto) 2.5 % Basophils (%) (Auto) 2.0 % Neutrophils # (Auto) 4.2 TH/MM3 Lymphocytes # (Auto) 1.4 TH/MM3 Monocytes # (Auto) 0.6 TH/MM3 Eosinophils # (Auto) 0.2 TH/MM3 Basophils # (Auto) 0.1 TH/MM3 CBC Comment AUTO DIFF Differential Comment AUTO DIFF CONFIRMED Platelet Estimate NORMAL Platelet Morphology Comment NORMAL Blood Urea Nitrogen 7 MG/DL Creatinine 1.10 MG/DL Random Glucose 80 MG/DL Total Protein 7.2 GM/DL Albumin 3.1 GM/DL Calcium Level 7.9 MG/DL Alkaline Phosphatase 98 U/L Aspartate Amino Transf (AST/SGOT) 46 U/L Alanine Aminotransferase (ALT/SGPT) 18 U/L Total Bilirubin 1.9 MG/DL Sodium Level 139 MEQ/L Potassium Level 3.8 MEQ/L Chloride Level 108 MEQ/L Carbon Dioxide Level 23.5 MEQ/L Anion Gap 8 MEQ/L Estimat Glomerular Filtration Rate 73 ML/MIN Lipase 197 U/L Imaging Studies Last 24 hours Impressions GI Bleed Scan Nuclear Medicine 07/15/17 0000 Signed Impressions: Service Date/Time: July 12:17 - CONCLUSION: No evidence of acute gastrointestinal bleed Ajith Peter MD Administered Medications Medications (Trade) Dose Ordered Sig/Radha Route PRN Reason Start Time Stop Time Status Last Admin Dose Admin Miscellaneous Information Patient in critical care unit? Ass... [id number] 07/12/17 22:45 07/12/17 22:45 Chlorhexidine Gluconate (Chlorhexidine 2% Cloth) 3 pack DAILY@04 TOPICAL 07/13/17 04:00 07/17/17 04:01 07/15/17 04:00 Thiamine HCl (Vitamin B1) 100 mg DAILY PO 07/14/17 09:00 07/15/17 08:00 Folic Acid (Folate) 1 mg DAILY PO 07/14/17 09:00 07/15/17 08:00 Morphine Sulfate (Msir) 15 mg Q6H PRN PO pain 4-10 07/14/17 18:00 07/15/17 15:05 Pantoprazole Sodium (Protonix) 40 mg Q12HR PO 07/15/17 09:45 07/15/17 10:17 Objective Remarks GENERAL: Well-nourished, well-developed patient. SKIN: Warm and dry. HEAD: Normocephalic. EYES: No scleral icterus. No injection or drainage. NECK: Supple, trachea midline. No JVD or lymphadenopathy. LYMPHATIC: No adenopathy. CARDIOVASCULAR: Regular rate and rhythm without murmurs. RESPIRATORY: Breath sounds equal bilaterally. No accessory muscle use. GASTROINTESTINAL: Abdomen soft, non-tender, nondistended. EXTREMITIES: No cyanosis, or edema. MUSCULOSKELETAL: Adequate muscle tone. NEUROLOGICAL: No obvious focal deficit. Awake, alert, and oriented x3. PSYCHIATRIC: Appropriate mood and affect; insight and judgment normal. Assessment/Plan Assessment 1. DOROTA: due to acute GI blood loss. Uncertain of baseline. s/p transfusion of 3 units of PRBC and a totall of 700 mg of IV iron sucrose. Hemoglobin stable at 7.8. Continue to follow CBC. 2. GIB: EGD from 07/13 with no evidence of bleed with gastritis and distal esophagitis. Small bowel xray within normal limits. NM bleeding scan with no evidence of acute bleed. Colorectal surgery consult regarding repeat colonoscopy. 3. ETOH abuse: patient has been counseled on etoh cessation. Tanesha Jovel MD Jul 15, 2017 17:08
[2017-07-16] VITALS (61 sets, daily range): BP systolic 109–156; BP diastolic 64–95; PULSE 68–106; RESP 13–50; TEMP 98.4–99.2; O2SAT 96–100
[2017-07-16] MEDS: MORPHINE SULFATE 15 MG TAB PO PRN ×4 (02:10→20:03)
[2017-07-16] MEDS: CHLORHEXIDINE GLUCONATE 2 % 1 PACK (2 CLOTHS)(taper/protocol) TOPICAL SCH (04:00)
[2017-07-16 04:36] LABS: AUTOMATED NEUTROPHIL # 4.4 TH/MM3 (1.8-7.7); BASOPHIL % 0.7 % (0.0-2.0); EOSINOPHIL # 0.2 TH/MM3 (0-0.4); EOSINOPHIL % 3.1 % (0.0-4.0); HEMATOCRIT 23.4 % (39.0-51.0); LYMPHOCYTE # 0.9 TH/MM3 (1.0-4.8); MEAN CELL VOLUME 78.4 FL (80.0-100.0); MEAN CORPUSCULAR HEMOGLOBIN 23.2 PG (27.0-34.0); MONO % 8.2 % (0.0-8.0); PLATELET COUNT 151 TH/MM3 (150-450); RED BLOOD COUNT 2.98 MIL/MM3 (4.50-5.90); RED CELL DISTRIBUTION WIDTH 22.7 % (11.6-17.2)
[2017-07-16 04:38] LABS: HEMO FLAGS AUTO DIFF; MEAN CORPUSCULAR HGB CONC 29.6 % (32.0-36.0)
[2017-07-16] MEDS ORDERED: SODIUM CHLOR 0.9% 250 ML INJ 250 ML IV ONE (05:00)
[2017-07-16 05:05] LABS: OVALOCYTES 1+ (NORMAL); PLATELET ESTIMATE SMEAR NORMAL (NORMAL); PLATELET MORPHOLOGY NORMAL (NORMAL); SCAN/DIFF AUTO DIFF CONFIRMED
[2017-07-16] MEDS ORDERED: ACETAMINOPHEN 325 MG TAB PO PRN (08:00)
[2017-07-16] MEDS: THIAMINE HCL 100 MG TAB PO SCH (08:26)
[2017-07-16] MEDS: PANTOPRAZOLE SOD 40 MG DELAYED RELEASE TAB PO SCH ×2 (08:26→19:36)
[2017-07-16] MEDS: FOLIC ACID 1 MG TAB PO SCH (08:26)
[2017-07-16] MEDS: HYDROCORTISONE ACETATE 25 MG SUPP RECTAL SCH ×2 (08:27→19:37)
--- NOTE | 2017-07-16 10:33 | HHI.PR ---
Subjective Remarks Discussed with nursing, no acute deterioration since last night however patient' s blood seemed to have dropped to 6.9 this morning. No further bowel movements since last night. Patient says he feels slightly weaker since yesterday, says that colorectal surgeon did see him last night. Reports having same diffuse abdominal soreness. Objective Vital Signs Date Time Temp Pulse Resp B/P (MAP) Pulse Ox O2 Delivery O2 Flow Rate FiO2 07/16/17 10:00 82 07/16/17 10:00 82 26 124/76 (92) 98 07/16/17 09:50 86 23 139/82 (101) 98 07/16/17 09:49 98.4 88 21 120/67 96 07/16/17 09:45 84 29 120/67 (84) 98 07/16/17 09:40 84 17 132/74 (93) 07/16/17 09:35 100 36 133/75 (94) 07/16/17 09:34 98.6 85 22 132/74 99 07/16/17 09:31 80 18 122/68 (86) 07/16/17 09:30 18 07/16/17 09:00 86 07/16/17 09:00 86 21 132/80 (97) 07/16/17 08:00 99.2 106 50 131/77 (95) 07/16/17 08:00 106 07/16/17 07:00 76 18 113/66 (82) 07/16/17 07:00 76 07/16/17 06:00 77 07/16/17 06:00 80 13 116/72 (87) 99 07/16/17 05:00 76 15 115/72 (86) 07/16/17 04:00 98.5 80 14 121/72 (88) 99 07/16/17 04:00 85 07/16/17 03:00 78 13 118/77 (91) 99 07/16/17 02:00 74 14 119/73 (88) 99 07/16/17 02:00 83 07/16/17 01:00 84 15 114/70 (85) 99 07/16/17 00:00 75 07/16/17 00:00 80 15 109/67 (81) 99 07/15/17 23:00 78 12 114/64 (81) 99 07/15/17 22:00 75 07/15/17 22:00 94 32 134/75 (94) 99 07/15/17 21:00 104 51 137/84 (101) 99 07/15/17 20:00 99.0 74 21 119/78 (92) 99 07/15/17 20:00 85 07/15/17 19:00 74 14 127/81 (96) 99 07/15/17 18:00 88 07/15/17 18:00 88 29 137/88 (104) 07/15/17 17:00 78 28 135/89 (104) 07/15/17 16:10 80 07/15/17 16:00 80 27 132/72 (92) 07/15/17 15:09 78 19 143/88 (106) 07/15/17 14:00 76 07/15/17 13:00 78 126/76 (93) 07/15/17 12:00 80 07/15/17 12:00 80 26 133/86 (102) 07/15/17 11:00 80 48 138/74 (95) I/O 07/15/17 07/15/17 07/15/17 07/16/17 07/16/17 07/16/17 07:00 15:00 23:00 07:00 15:00 23:00 Intake Total 1709 ml 282 ml 650 ml 1050 ml 20 ml Output Total 500 ml Balance 1709 ml 282 ml 650 ml 550 ml 20 ml Intake Oral 800 ml 650 ml 1050 ml IV Total 909 ml 282 ml Blood Product IV Normal Saline Flush 20 ml Output Urine Total 500 ml # Voids 3 3 # Bowel Movements 2 0 0 Result Diagram: 07/16/17 0417 07/15/17 0422 Objective Remarks No acute distress, sitting in bed Abdomen is soft, nondistended, mild diffuse tenderness to palpation with positive bowel sounds, no clinical jaundice A/P Assessment and Plan 1. Anemia- 2/2 blood loss, cbc showing drop again, transfusion to be started this AM. Bleeding scan neg yesterday, EGD showing gastritis and esophagitis. Pending CR surg note. I suspect that his bleeding is coming from his lower GI tract possibly from hemorrhoids intermittently and that is why the bleeding scan is not picking it up. Will d/w GI. 2. Elevated LFT's- 2/2 ETOH 3. Abdominal pain- oral narcotics 4. Alcohol abuse- pt advised to discontinue alcohol, [facility]wa protocol 5. DM type 2- place on SS D/W Dr. Mc - trend cbcs and if no fresh BRBPR, can be discharged. Torsten Fernandez MD Jul 16, 2017 10:33
--- NOTE | 2017-07-16 18:24 | HHI.GIFU ---
Subjective Remarks Comfortable in bed complains of some abdominal pain no bowel movements in over 24 hours Objective Vitals I&O Vital Signs Date Time Temp Pulse Resp B/P (MAP) Pulse Ox O2 Delivery O2 Flow Rate FiO2 07/16/17 18:05 76 13 142/86 (104) 07/16/17 18:00 80 07/16/17 17:05 80 21 140/93 (109) 07/16/17 17:00 70 07/16/17 16:05 99.0 76 17 145/87 (106) 07/16/17 16:00 88 07/16/17 15:05 72 16 136/80 (98) 07/16/17 15:02 18 07/16/17 15:00 70 07/16/17 14:55 74 27 133/86 (102) 07/16/17 14:51 99.0 75 26 127/81 100 07/16/17 14:50 76 24 127/81 (96) 98 07/16/17 14:45 78 14 156/92 (113) 99 07/16/17 14:30 72 16 142/89 (106) 100 07/16/17 14:15 78 29 147/88 (107) 100 07/16/17 14:05 70 23 135/95 (108) 100 07/16/17 14:00 82 21 143/86 (105) 100 07/16/17 14:00 82 07/16/17 13:35 74 20 133/84 (100) 100 07/16/17 13:30 78 32 134/84 (101) 98 07/16/17 13:25 78 14 148/90 (109) 98 07/16/17 13:20 76 22 132/88 (103) 98 07/16/17 13:15 68 17 139/88 (105) 99 07/16/17 13:10 72 16 136/80 (98) 98 07/16/17 13:05 72 13 137/80 (99) 98 07/16/17 13:00 72 13 119/75 (90) 98 07/16/17 13:00 72 07/16/17 12:55 76 07/16/17 12:55 76 22 135/78 (97) 98 07/16/17 12:50 82 15 129/80 (96) 99 07/16/17 12:50 98.6 80 21 129/80 97 07/16/17 12:45 72 15 123/84 (97) 99 07/16/17 12:40 68 13 120/77 (91) 98 07/16/17 12:35 76 15 131/79 (96) 98 07/16/17 12:35 98.5 68 20 131/79 99 07/16/17 12:30 78 25 125/76 (92) 98 07/16/17 12:29 98.5 74 26 125/76 98 07/16/17 12:29 78 22 134/75 (94) 07/16/17 12:24 76 23 124/74 (91) 07/16/17 12:09 98.6 76 25 131/81 (98) 07/16/17 12:00 76 07/16/17 11:24 76 19 129/76 (93) 07/16/17 11:09 74 16 124/75 (91) 07/16/17 11:00 80 07/16/17 10:00 82 07/16/17 10:00 82 26 124/76 (92) 98 07/16/17 09:50 86 23 139/82 (101) 98 07/16/17 09:49 98.4 88 21 120/67 96 07/16/17 09:45 84 29 120/67 (84) 98 07/16/17 09:40 84 17 132/74 (93) 07/16/17 09:35 100 36 133/75 (94) 07/16/17 09:34 98.6 85 22 132/74 99 07/16/17 09:31 80 18 122/68 (86) 07/16/17 09:00 86 07/16/17 09:00 86 21 132/80 (97) 07/16/17 08:00 99.2 106 50 131/77 (95) 07/16/17 08:00 106 07/16/17 07:00 76 18 113/66 (82) 07/16/17 07:00 76 07/16/17 06:00 77 07/16/17 06:00 80 13 116/72 (87) 99 07/16/17 05:00 76 15 115/72 (86) 07/16/17 04:00 98.5 80 14 121/72 (88) 99 07/16/17 04:00 85 07/16/17 03:00 78 13 118/77 (91) 99 07/16/17 02:00 74 14 119/73 (88) 99 07/16/17 02:00 83 07/16/17 01:00 84 15 114/70 (85) 99 07/16/17 00:00 75 07/16/17 00:00 80 15 109/67 (81) 99 07/15/17 23:00 78 12 114/64 (81) 99 07/15/17 22:00 75 07/15/17 22:00 94 32 134/75 (94) 99 07/15/17 21:00 104 51 137/84 (101) 99 07/15/17 20:00 99.0 74 21 119/78 (92) 99 07/15/17 20:00 85 07/15/17 19:00 74 14 127/81 (96) 99 I/O 07/15/17 07/15/17 07/15/17 07/16/17 07/16/17 07/16/17 07:00 15:00 23:00 07:00 15:00 23:00 Intake Total 1709 ml 282 ml 650 ml 1050 ml 880 ml 50 ml Output Total 500 ml 500 ml Balance 1709 ml 282 ml 650 ml 550 ml 880 ml -450 ml Intake Oral 800 ml 650 ml 1050 ml IV Total 909 ml 282 ml 50 ml Packed Cells 800 ml Blood Product IV Normal Saline Flush 80 ml Output Urine Total 500 ml 500 ml # Voids 3 3 # Bowel Movements 2 0 0 Laboratory Laboratory Tests Test 07/16/17 04:17 White Blood Count 6.0 Red Blood Count 2.98 Hemoglobin 6.9 Hematocrit 23.4 Mean Corpuscular Volume 78.4 Mean Corpuscular Hemoglobin 23.2 Mean Corpuscular Hemoglobin Concent 29.6 Red Cell Distribution Width 22.7 Platelet Count 151 Mean Platelet Volume 6.7 Neutrophils (%) (Auto) 73.0 Lymphocytes (%) (Auto) 15.0 Monocytes (%) (Auto) 8.2 Eosinophils (%) (Auto) 3.1 Basophils (%) (Auto) 0.7 Neutrophils # (Auto) 4.4 Lymphocytes # (Auto) 0.9 Monocytes # (Auto) 0.5 Eosinophils # (Auto) 0.2 Basophils # (Auto) 0.0 CBC Comment AUTO DIFF Differential Comment AUTO DIFF CONFIRMED Platelet Estimate NORMAL Platelet Morphology Comment NORMAL Ovalocytes 1+ Imaging Last Impressions GI Bleed Scan Nuclear Medicine 07/15/17 0000 Signed Impressions: Service Date/Time: July 12:17 - CONCLUSION: No evidence of acute gastrointestinal bleed Ajith Peter MD Small Bowel X-Ray 07/14/17 0000 Signed Impressions: Service Date/Time: Friday, July 14, 2017 16:15 - CONCLUSION: Unremarkable small bowel examination. Isaac Mcghee MD Abdomen/Pelvis CT 07/12/17 1213 Signed Impressions: Service Date/Time: Wednesday, July 12, 2017 13:20 - CONCLUSION: Mild fatty replacement to the liver. There is no free air or obstruction. I see no suspicious abdominal masses. Fernando Waller MD FACR Physical Exam HEENT:normocephalic; atraumatic; no jaundice. Throat is clear. NECK: Neck is supple CHEST: Chest is clear to auscultation and percussion. CARDIAC: Regular rate and rhythm with no murmur gallop or rubs. ABDOMEN: Soft, nondistended, nontender; no hepatosplenomegaly; bowel sounds are present in all four quadrants. EXTREMITIES: No clubbing, cyanosis, or edema. SKIN: Normal; no rash; no jaundice. DESULFURIZER MACHINE: No focal deficits; alert and oriented times three. Assessment and Plan Plan GI bleed of unknown origin, I doubt any active GI bleed in the past 24 hours at this point, I think the drop in hemoglobin is probably secondary to dilutional or lab error Workup for any bleed has thus far been negative 42-year-old male with anemia questionable etiology most likely gastritis and esophagitis on EGD, he had 2 colonoscopy in 2016 and 2017 only showing hemorrhoids I had a discussion with the patient about repeating the colonoscopy and the fact that most likely it will not show anything significant patient not interested in having a colonoscopy now which I agree with that Small bowel follow-through and bleeding scan unremarkable Monitor labs closely Continue PPI If hemoglobin appears to be stable for 24-48 hours with no signs of any active bleeding I would think at that point patient may be discharged to follow up with GI on an outpatient basis for capsule camera I had a lengthy discussion with the patient and his family which is at bedside Case discussed also with attending physician Jae Domingo MD Jul 16, 2017 18:24
[2017-07-17] VITALS (18 sets, daily range): BP systolic 120–162; BP diastolic 58–97; PULSE 68–88; RESP 13–35; TEMP 98.4–99.4; O2SAT 97–100
[2017-07-17] MEDS: MORPHINE SULFATE 15 MG TAB PO PRN ×4 (02:01→20:02)
[2017-07-17] MEDS: HYDROCORTISONE ACETATE 25 MG SUPP RECTAL SCH ×3 (03:47→19:30)
[2017-07-17] MEDS: CHLORHEXIDINE GLUCONATE 2 % 1 PACK (2 CLOTHS)(taper/protocol) TOPICAL SCH (04:00)
[2017-07-17] MEDS: PANTOPRAZOLE SOD 40 MG DELAYED RELEASE TAB PO SCH ×2 (07:53→19:27)
[2017-07-17] MEDS: FOLIC ACID 1 MG TAB PO SCH (07:53)
[2017-07-17] MEDS: THIAMINE HCL 100 MG TAB PO SCH (07:53)
--- NOTE | 2017-07-17 13:56 | HHI.PR ---
Subjective Remarks Discussed with nursing, patient did have a bloody bowel movement of which the nurse notes was bright red blood in a medium/moderate amount . Patient himself collaborates this bloody bowel movement. Says he feels even weaker today. Objective Vital Signs Date Time Temp Pulse Resp B/P (MAP) Pulse Ox O2 Delivery O2 Flow Rate FiO2 07/17/17 13:00 70 13 145/89 (107) 07/17/17 12:00 98.9 80 23 134/83 (100) 07/17/17 12:00 80 07/17/17 11:00 76 07/17/17 11:00 76 21 141/82 (101) 07/17/17 10:00 70 17 135/86 (102) 07/17/17 10:00 70 07/17/17 09:00 72 07/17/17 09:00 72 16 128/80 (96) 07/17/17 08:53 22 07/17/17 08:00 80 07/17/17 08:00 98.5 80 22 138/87 (104) 07/17/17 07:00 84 07/17/17 07:00 84 24 148/88 (108) 07/17/17 06:00 76 14 143/78 (99) 07/17/17 06:00 76 07/17/17 05:00 70 15 122/78 (93) 07/17/17 04:00 98.4 88 35 123/72 (89) 99 07/17/17 04:00 88 07/17/17 03:00 78 24 124/58 (80) 07/17/17 02:00 84 16 143/85 (104) 07/17/17 02:00 84 07/17/17 01:07 78 21 124/74 (91) 07/17/17 00:05 78 07/17/17 00:05 99.3 78 15 120/72 (88) 97 07/16/17 23:05 78 14 111/67 (82) 07/16/17 23:05 78 07/16/17 22:05 76 14 109/64 (79) 07/16/17 22:05 76 07/16/17 21:05 80 26 156/84 (108) 07/16/17 20:05 99.0 88 28 138/92 (107) 99 07/16/17 20:00 80 07/16/17 19:05 72 24 129/85 (100) 07/16/17 18:05 76 13 142/86 (104) 07/16/17 18:00 80 07/16/17 17:05 80 21 140/93 (109) 07/16/17 17:00 70 07/16/17 16:05 99.0 76 17 145/87 (106) 07/16/17 16:00 88 07/16/17 15:05 72 16 136/80 (98) 07/16/17 15:00 70 07/16/17 14:55 74 27 133/86 (102) 07/16/17 14:51 99.0 75 26 127/81 100 07/16/17 14:50 76 24 127/81 (96) 98 07/16/17 14:45 78 14 156/92 (113) 99 07/16/17 14:30 72 16 142/89 (106) 100 07/16/17 14:15 78 29 147/88 (107) 100 07/16/17 14:05 70 23 135/95 (108) 100 07/16/17 14:00 82 21 143/86 (105) 100 07/16/17 14:00 82 I/O 07/16/17 07/16/17 07/16/17 07/17/17 07/17/17 07/17/17 07:00 15:00 23:00 07:00 15:00 23:00 Intake Total 1050 ml 880 ml 50 ml 720 ml Output Total 500 ml 500 ml 925 ml 400 ml Balance 550 ml 880 ml -450 ml -205 ml -400 ml Intake Oral 1050 ml 720 ml IV Total 50 ml Packed Cells 800 ml Blood Product IV Normal Saline Flush 80 ml Output Urine Total 500 ml 500 ml 850 ml 400 ml Estimated Blood Loss 75 ml # Bowel Movements 0 1 Result Diagram: 07/17/17 0532 07/15/17 0422 Objective Remarks No acute distress, sitting in bed Abdomen is soft, nondistended, moderate tenderness to very deep palpation on the right side with natural voluntary guarding A/P Assessment and Plan 1. Anemia- 2/2 blood loss, cbc is stable this morning while clinically still bleeding . Bleeding scan negative with EGD showing gastritis and esophagitis which does not explain his anemia or source of bleeding sufficiently. Discussed case with gastroenterology and colorectal surgery - surgery plans for tentative exploratory visualization of under anesthesia - GI agrees w/ this with still plan for pill endoscopy afterwards. 2. Elevated LFT's- stable at this rate, 2/2 fatty liver 3. Abdominal pain- oral narcotics 4. Alcohol abuse- [facility] protocol 5. DM type 2- place on SS Pt has verbalized not returning to metformin due to GI s/e. Torsten Fernandez MD Jul 17, 2017 13:56
[2017-07-18 00:03] VITALS: BP 144/87; PULSE 80; RESP 18; TEMP 98.5; O2SAT 100
[2017-07-18] MEDS: MORPHINE SULFATE 15 MG TAB PO PRN ×4 (02:06→20:51)
[2017-07-18 04:03] VITALS: BP 123/85; PULSE 85; RESP 18; TEMP 98.6; O2SAT 99
[2017-07-18 07:45] VITALS: BP 142/91; PULSE 100; RESP 16; TEMP 99.5; O2SAT 100
[2017-07-18] MEDS: FOLIC ACID 1 MG TAB PO SCH (08:44)
[2017-07-18] MEDS: PANTOPRAZOLE SOD 40 MG DELAYED RELEASE TAB PO SCH ×2 (08:45→20:51)
[2017-07-18] MEDS: HYDROCORTISONE ACETATE 25 MG SUPP RECTAL SCH ×3 (08:45→20:51)
[2017-07-18] MEDS: THIAMINE HCL 100 MG TAB PO SCH (08:45)
[2017-07-18 09:31] LABS: AUTOMATED NEUTROPHIL # 6.3 TH/MM3 (1.8-7.7); BASOPHIL # 0.1 TH/MM3 (0-0.2); BASOPHIL % 0.6 % (0.0-2.0); EOSINOPHIL # 0.1 TH/MM3 (0-0.4); EOSINOPHIL % 1.2 % (0.0-4.0); HEMATOCRIT 31.2 % (39.0-51.0); LYMPHOCYTE # 1.1 TH/MM3 (1.0-4.8); MEAN CELL VOLUME 82.9 FL (80.0-100.0); MEAN CORPUSCULAR HEMOGLOBIN 26.4 PG (27.0-34.0); MEAN CORPUSCULAR HGB CONC 31.9 % (32.0-36.0); MONO % 9.2 % (0.0-8.0); PLATELET COUNT 106 TH/MM3 (150-450); RED BLOOD COUNT 3.76 MIL/MM3 (4.50-5.90); WHITE BLOOD COUNT 8.3 TH/MM3 (4.0-11.0)
[2017-07-18 09:33] LABS: HEMO FLAGS AUTO DIFF
--- NOTE | 2017-07-18 09:59 | HHI.PR ---
Subjective Remarks in no acute distress. says that had some more rectal bleed last night. slightly lightheaded and weak. has some generalized abdominal pain. Objective Vitals Vital Signs Date Time Temp Pulse Resp B/P (MAP) Pulse Ox O2 Delivery O2 Flow Rate FiO2 07/18/17 07:45 99.5 100 16 142/91 (108) 100 07/18/17 04:03 98.6 85 18 123/85 (98) 99 07/18/17 03:06 18 07/18/17 00:03 98.5 80 18 144/87 (106) 100 07/17/17 20:05 99.4 77 18 138/78 (98) 99 07/17/17 16:00 99.0 81 19 162/97 (118) 100 07/17/17 15:00 68 16 140/89 (106) 07/17/17 14:00 78 07/17/17 14:00 78 25 141/89 (106) 07/17/17 13:00 70 07/17/17 13:00 70 13 145/89 (107) 07/17/17 12:00 98.9 80 23 134/83 (100) 07/17/17 12:00 80 07/17/17 11:00 76 07/17/17 11:00 76 21 141/82 (101) 07/17/17 10:00 70 17 135/86 (102) 07/17/17 10:00 70 I/O 07/17/17 07/17/17 07/17/17 07/18/17 07/18/17 07/18/17 06:59 14:59 22:59 06:59 14:59 22:59 Intake Total 720 ml 480 ml 240 ml Output Total 925 ml 400 ml Balance -205 ml -400 ml 480 ml 240 ml Intake Oral 720 ml 480 ml 240 ml Output Urine Total 850 ml 400 ml Estimated Blood Loss 75 ml # Voids 3 2 # Bowel Movements 1 3 0 Result Diagram: 07/18/17 0829 07/15/17 0422 Imaging Last Impressions GI Bleed Scan Nuclear Medicine 07/15/17 0000 Signed Impressions: Service Date/Time: July 12:17 - CONCLUSION: No evidence of acute gastrointestinal bleed Ajith Peter MD Small Bowel X-Ray 07/14/17 0000 Signed Impressions: Service Date/Time: Friday, July 14, 2017 16:15 - CONCLUSION: Unremarkable small bowel examination. Isaac Mcghee MD Abdomen/Pelvis CT 07/12/17 1213 Signed Impressions: Service Date/Time: Wednesday, July 12, 2017 13:20 - CONCLUSION: Mild fatty replacement to the liver. There is no free air or obstruction. I see no suspicious abdominal masses. Fernando Waller MD FACR Objective Remarks GENERAL: This is a well-nourished, well-developed patient, in no apparent distress. CARDIOVASCULAR: Regular rate and regular rhythm without murmurs, gallops, or rubs. RESPIRATORY: Clear to auscultation. Breath sounds equal bilaterally. No wheezes , rales, or rhonchi. GASTROINTESTINAL: Abdomen soft, with generalized tenderness, nondistended. Normal, active bowel sounds MUSCULOSKELETAL: Extremities without clubbing, cyanosis, or edema. NEURO: Alert & Oriented x4 to person, place, time, situation. Moves all ext x4 Procedures EGD Medications and IVs Current Medications Sodium Chloride 1,000 ml @ 125 mls/hr Q8H IV Last administered on 07/12/17 12 :22; Start 07/12/17 at 12:13; Stop 07/12/17 at 12:53; Status DC Sodium Chloride (NS Flush) 2 ml UNSCH PRN IVF FLUSH AFTER USING IV ACCESS Last administered on 07/16/17 19:41; Start 07/12/17 at 12:15 Sodium Chloride 250 ml @ 15 mls/hr ONCE ONCE IV Last administered on 13:00; Start 07/12/17 at 13:00; Stop 07/13/17 at 05:39; Status DC Hydromorphone HCl (Dilaudid Pf Inj) 0.5 mg ONCE ONCE IV PUSH Last administered on 07/12/17 13:53; Start 07/12/17 at 13:00; Stop 07/12/17 at 13:01 ; Status DC Ondansetron HCl (Zofran Inj) 4 mg ONCE ONCE IV PUSH Last administered on 12:59; Start 07/12/17 at 13:00; Stop 07/12/17 at 13:01; Status DC Sodium Chloride 1,000 ml @ 999 mls/hr BOLUS ONCE IV Last administered on 07/12 12:56; Start 07/12/17 at 13:00; Stop 07/12/17 at 14:00; Status DC Pantoprazole Sodium 80 mg/ Sodium Chloride 35 ml @ 420 mls/hr Q5M ONCE IV Last administered on 07/12/17 13:17; Start 07/12/17 at 13:07; Stop 07/12/17 at 13:11; Status DC Pantoprazole Sodium 80 mg/ Sodium Chloride 100 ml @ 10 mls/hr Q10H IV Last administered on 07/14/17 08:11; Start 07/12/17 at 13:07; Stop 07/14/17 at 17: 00; Status DC Hydromorphone HCl (Dilaudid Pf Inj) 0.5 mg Q4H PRN IV PUSH pain Last administered on 07/14/17 16:22; Start 07/12/17 at 15:45; Stop 07/14/17 at 17: 59; Status DC Flumazenil (Romazicon Inj) 0.2 mg Q1M PRN IV PUSH SEE LABEL COMMENTS; Start at 15:45 Lorazepam (Ativan) 1 mg Q4H PRN PO CIWA 8 - 10; Start 07/12/17 at 15:45 Lorazepam (Ativan Inj) 1 mg Q4H PRN IV PUSH CIWA 8 - 10; Start 07/12/17 at 15: 45 Lorazepam (Ativan) 2 mg Q2H PRN PO CIWA 11-14; Start 07/12/17 at 15:45 Lorazepam (Ativan Inj) 2 mg Q2H PRN IV PUSH CIWA 11-14; Start 07/12/17 at 15:45 Lorazepam (Ativan Inj) 2 mg Q1H PRN IV PUSH CIWA 15-20; Start 07/12/17 at 15:45 Lorazepam (Ativan Inj) 2 mg Q15M PRN IV PUSH CIWA > 20; Start 07/12/17 at 15:45 Dextrose (D50w (Vial) Inj) 50 ml UNSCH PRN IV PUSH HYPOGLYCEMIA-SEE COMMENTS; Start 07/12/17 at 15:45; Stop 07/14/17 at 08:37; Status DC Glucagon (Glucagon Inj) 1 mg UNSCH PRN OTHER HYPOGLYCEMIA-SEE COMMENTS; Start 07/12/17 at 15:45; Stop 07/14/17 at 08:37; Status DC Sodium Chloride 1,000 ml @ 84 mls/hr [id number] IV Last administered on 15:25; Start 07/12/17 at 15:45; Stop 07/15/17 at 09:42; Status DC Potassium Phosphate 30 mmol/ Sodium Chloride 260 ml @ 43.333 mls/ hr ONCE ONCE IV Last administered on 07/12/17 20:19; Start 07/12/17 at 17:00; Stop at 22:59; Status DC Influenza Virus Vaccine (Flu (Quadrivalent) Vaccine Inj) 0.5 ml ONCE ONCE IM ; Start 07/13/17 at 10:00; Stop 07/13/17 at 10:01; Status DC Miscellaneous Information Patient in critical care unit? Ass... Q361D .XX Last administered on 07/12/17 22:45; Start 07/12/17 at 22:45 Chlorhexidine Gluconate (Chlorhexidine 2% Cloth) 3 pack DAILY@04 TOPICAL Last administered on 07/16/17 04:00; Start 07/13/17 at 04:00; Stop 07/17/17 at 04 :01; Status DC Chlorhexidine Gluconate (Chlorhexidine 2% Cloth) 3 pack UNSCH PRN TOPICAL HYGIENIC CARE; Start 07/12/17 at 22:45; Stop 07/17/17 at 22:32; Status DC Hydroxyzine HCl (Atarax) 10 mg ONCE ONCE PO Last administered on 07/13/17 00 :19; Start 07/13/17 at 00:00; Stop 07/13/17 at 00:08; Status DC Potassium Chloride (KCl) 40 meq ONCE ONCE PO Last administered on 07/13/17 00:13; Start 07/13/17 at 00:00; Stop 07/13/17 at 00:09; Status DC Potassium Chloride 100 ml @ 50 mls/hr Q2H IV Last administered on 07/13/17 02:12; Start 07/13/17 at 00:00; Stop 07/13/17 at 03:59; Status DC Calcium Gluconate 1 gm/Dextrose 110 ml @ 110 mls/hr ONCE ONCE IV ; Start 07/20 at 12:00; Stop 07/13/17 at 12:59; Status Cancel Calcium Gluconate 0.5 gm/Dextrose 105 ml @ 105 mls/hr ONCE ONCE IV Last administered on 07/13/17 13:00; Start 07/13/17 at 13:00; Stop 07/13/17 at 13 :59; Status DC Magnesium Citrate (Citroma Liq) 300 ml NOW ONCE PO Last administered on 14:11; Start 07/13/17 at 14:00; Stop 07/13/17 at 14:01; Status DC Magnesium Citrate (Citroma Liq) 300 ml ONCE ONCE PO Last administered on 07/13 18:00; Start 07/13/17 at 18:00; Stop 07/13/17 at 18:01; Status DC Iron Sucrose 200 mg/Sodium Chloride 110 ml @ 110 mls/hr ONCE ONCE IV Last administered on 07/13/17 18:07; Start 07/13/17 at 18:00; Stop 07/13/17 at 18 :59; Status DC Hydroxyzine HCl (Atarax) 25 mg ONCE ONCE PO Last administered on 07/13/17 23 :41; Start 07/13/17 at 23:45; Stop 07/13/17 at 23:46; Status DC Calcium Gluconate (Calcium Gluconate Inj) 1 gm ONCE ONCE IV PUSH ; Start 07/14 at 06:00; Stop 07/14/17 at 06:01; Status UNV Calcium Gluconate 1 gm/Dextrose 110 ml @ 110 mls/hr ONCE ONCE IV Last administered on 07/14/17 06:56; Start 07/14/17 at 06:15; Stop 07/14/17 at 07 :14; Status DC Thiamine HCl (Vitamin B1) 100 mg DAILY PO Last administered on 07/18/17 08:45 ; Start 07/14/17 at 09:00 Folic Acid (Folate) 1 mg DAILY PO Last administered on 07/18/17 08:44; Start 07/14/17 at 09:00 Lorazepam (Ativan Inj) 2 mg Q1HR PRN IV PUSH SEIZURES; Start 07/14/17 at 08:30 Chlordiazepoxide (Librium) 25 mg TID PRN PO SEVERE ANXIETY OR AGITATION; Start 07/14/17 at 08:30 Pantoprazole Sodium 80 mg/ Sodium Chloride 100 ml @ 10 mls/hr Q10H IV Last administered on 07/15/17 08:01; Start 07/14/17 at 18:00; Stop 07/15/17 at 09 :42; Status DC Iron Sucrose (Venofer Inj) 500 mg ONCE ONCE IV PUSH ; Start 07/14/17 at 15:45 ; Stop 07/14/17 at 15:51; Status DC Iron Sucrose 500 mg/Sodium Chloride 250 ml @ 62.5 mls/hr ONCE ONCE IV Last administered on 07/14/17 19:26; Start 07/14/17 at 18:00; Stop 07/14/17 at 21 :59; Status DC Morphine Sulfate (Msir) 15 mg Q6H PRN PO pain 4-10 Last administered on 08:48; Start 07/14/17 at 18:00 Lidocaine (L-M-X 4 Cream) 1 applic UNSCH PRN TOPICAL SEE LABEL COMMENTS; Start 07/15/17 at 07:45 Hydrocortisone Acetate (Hemorrhoidal Hc Supp) 25 mg BID RECTAL Last administered on 07/17/17 03:47; Start 07/15/17 at 09:00 Pantoprazole Sodium (Protonix) 40 mg Q12HR PO Last administered on 07/18/17 08:45; Start 07/15/17 at 09:45 Sodium Chloride 250 ml @ 15 mls/hr ONCE ONCE IV Last administered on 08:27; Start 07/16/17 at 05:00; Stop 07/16/17 at 21:39; Status DC Acetaminophen (Tylenol) 650 mg Q4H PRN PO SEE LABEL COMMENTS Last administered on 07/16/17 08:26; Start 07/16/17 at 08:00 Propofol (Diprivan 200 Mg/20 ml Inj) 100 mg STK-MED ONCE IV PUSH ; Start 07/13 at 12:02; Stop 07/16/17 at 19:00; Status DC Magnesium Citrate (Citroma Liq) 300 ml ONCE ONCE PO ; Start 07/18/17 at 15:00 ; Stop 07/18/17 at 15:01 Magnesium Citrate (Citroma Liq) 300 ml ONCE ONCE PO ; Start 07/18/17 at 20:00 ; Stop 10/15/17 at 20:01 A/P Assessment and Plan A/P 1. Anemia- 2/2 blood loss. Bleeding scan negative - GI consulted-s/p EGD showing gastritis and esophagitis which does not explain his anemia or source of bleeding sufficiently. H/H fairly stable. colorectal surgery following; plan for exam under anaesthesia today. 2. Elevated LFT's- stable at this rate, 2/2 fatty liver 3. Abdominal pain- oral narcotics 4. Alcohol abuse- ciwa protocol 5. DM type 2- place on SS DVT prophylaxis with SCD's. Mely Lambert MD Jul 18, 2017 09:58
[2017-07-18 10:10] LABS: ANION GAP 14 MEQ/L (5-15); AST (GOT) 41 U/L (15-37); BICARBONATE 20.3 MEQ/L (21.0-32.0); BLOOD UREA NITROGEN 6 MG/DL (7-18); CHLORIDE 103 MEQ/L (98-107); GLOMERULAR FILTRATION RATE 75 ML/MIN (>89); POTASSIUM 3.4 MEQ/L (3.5-5.1); SODIUM (NA) 137 MEQ/L (136-145)
[2017-07-18 10:11] LABS: ALT (GPT) 13 U/L (12-78)
[2017-07-18 10:13] LABS: ALKALINE PHOSPHATASE 73 U/L (45-117); TOTAL BILIRUBIN ADULT 6.2 MG/DL (0.2-1.0)
[2017-07-18 10:33] LABS: SCAN/DIFF AUTO DIFF CONFIRMED
[2017-07-18 11:45] VITALS: BP 153/96; PULSE 68; RESP 16; TEMP 98.5; O2SAT 100
[2017-07-18] MEDS ORDERED: MAGNESIUM CITRATE SOLN 300 ML BTL PO ONE ×2 (15:00→20:00)
[2017-07-18 16:30] VITALS: BP 153/92; PULSE 72; RESP 16; TEMP 97.5; O2SAT 98
[2017-07-18 19:00] VITALS: BP 159/83; PULSE 66; RESP 16; TEMP 97.6; O2SAT 99
[2017-07-19] VITALS (8 sets, daily range): BP systolic 138–159; BP diastolic 84–95; PULSE 70–94; RESP 16–19; TEMP 95.9–98.5; O2SAT 97–100
[2017-07-19] MEDS: MORPHINE SULFATE 15 MG TAB PO PRN ×3 (02:52→18:05)
[2017-07-19] MEDS: HYDROCORTISONE ACETATE 25 MG SUPP RECTAL SCH (09:00)
[2017-07-19] MEDS ORDERED: GLYCOPYRROLATE 1 MG/5 ML SYRINGE IV PUSH ONE (09:10)
[2017-07-19] MEDS ORDERED: LIDOCAINE HCL 1% PF 5 ML AMPULE OTHER ONE (09:10)
[2017-07-19] MEDS ORDERED: PROPOFOL 200 MG/20 ML AMP IV ONE (09:10)
[2017-07-19] MEDS ORDERED: NEOSTIGMINE 3 MG/3 ML SYR IV ONE (09:10)
[2017-07-19] MEDS ORDERED: ROCURONIUM INJ 50 MG/5 ML SYRINGE IV PUSH ONE (09:10)
[2017-07-19] MEDS ORDERED: DEXAMETHASONE SOD PHOS 4 MG/ML VIAL IV ONE (09:10)
[2017-07-19] MEDS ORDERED: ePHEDrine/NS 25 MG/5 ML SYR IV ONE (09:10)
[2017-07-19] MEDS ORDERED: ONDANSETRON HCL 4 MG/2 ML VIAL IV PUSH ONE (09:10)
[2017-07-19] MEDS ORDERED: MIDAZOLAM HCL 2 MG/2 ML VIAL IV ONE (09:10)
[2017-07-19] MEDS: FOLIC ACID 1 MG TAB PO SCH (09:33)
[2017-07-19] MEDS: THIAMINE HCL 100 MG TAB PO SCH (09:33)
[2017-07-19] MEDS: PANTOPRAZOLE SOD 40 MG DELAYED RELEASE TAB PO SCH ×2 (09:34→21:37)
--- NOTE | 2017-07-19 11:15 | HHI.GIFU ---
Subjective Remarks Resting in bed. C/O significant reflux- still with heartburn despite protonix with bid dosing. C/O nausea, persistent diffuse abdominal pain. Reports that he had a large amount of rectal bleeding when he started the magnesium citrate yesterday, but none today. Reports a 40 lb weight loss over the past 4 months (EspinozaJoanie Ruiz [employer]) Objective Vitals I&O Vital Signs Date Time Temp Pulse Resp B/P (MAP) Pulse Ox O2 Delivery O2 Flow Rate FiO2 07/19/17 08:00 97.6 77 17 151/95 (113) 99 07/19/17 04:00 96.7 76 16 138/84 (102) 07/19/17 00:00 98.5 70 17 152/88 (109) 98 07/18/17 19:00 97.6 66 16 159/83 (108) 99 07/18/17 16:30 97.5 72 16 153/92 (112) 98 07/18/17 11:45 98.5 68 16 153/96 (115) 100 I/O 07/18/17 07/18/17 07/18/17 07/19/17 07/19/17 07/19/17 07:00 15:00 23:00 07:00 15:00 23:00 Intake Total 240 ml 480 ml 260 ml Balance 240 ml 480 ml 260 ml Intake Oral 240 ml 480 ml 260 ml # Voids 2 3 3 # Bowel Movements 0 0 0 Imaging Last Impressions GI Bleed Scan Nuclear Medicine 07/15/17 0000 Signed Impressions: Service Date/Time: July 12:17 - CONCLUSION: No evidence of acute gastrointestinal bleed Ajith Peter MD Small Bowel X-Ray 07/14/17 0000 Signed Impressions: Service Date/Time: Friday, July 14, 2017 16:15 - CONCLUSION: Unremarkable small bowel examination. Isaac Mcghee MD Abdomen/Pelvis CT 07/12/17 1213 Signed Impressions: Service Date/Time: Wednesday, July 12, 2017 13:20 - CONCLUSION: Mild fatty replacement to the liver. There is no free air or obstruction. I see no suspicious abdominal masses. Fernando Waller MD FACR Physical Exam HEENT: Normocephalic; atraumatic; no jaundice. Throat is clear. CHEST: CTA CARDIAC: RRR ABDOMEN: Soft, nondistended, diffuse tenderness throughout abdomen; no hepatosplenomegaly; bowel sounds are present in all four quadrants. EXTREMITIES: No clubbing, cyanosis, or edema. SKIN: Normal; no rash; no jaundice. ROLL CLEANER: No focal deficits; alert and oriented times three. (Joanie EspinozaP) Assessment and Plan Plan ASSESSMENT: - GI bleed of unknown origin. Pt has had a colonoscopy in 2015 (negative), colonoscopy December of 2016 (essentially unremarkable other than hemorrhoids). S/P EGD (07/13/17)----> IMPRESSIONS: 1. Duodenum normal-biopsy, gastritis antrum-biopsy, esophagitis distal esophagus-biopsy 2. Retroflexed views revealed a hiatal hernia. 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 CT Scan abdomen and pelvis without IV Contrast (07/12/17)---> Mild fatty replacement to the liver, there is no free air or obstruction, I see no suspicious abdominal masses. SBFT (07/14/17)---> Unremarkable small bowel examination. GI bleeding scan (07/15/17)---> No evidence of acute gastrointestinal bleed. CRS following, plan for exam under anesthesia, possible hemorrhoidectomy today at 2pm (Dr. Crowell). Pt c/o large amount of rectal bleeding after taking magnesium citrate, none today. - GERD. EGD as above. Protonix with BID dosing. C/P breakthrough symptoms. - Abdominal pain, nausea/vomiting. C/O persistent, diffuse abdominal pain and tenderness with nausea. S/P Colonoscopy (December), EGD, CT, SBFT as above. Unclear etiology. - Unintentional weight loss, 40lbs in past 4 months. - Anemia, acute blood loss. His HH has been stable since his transfusion. HH yesterday ..2. PLAN: - NPO for procedure - Undergoing rectal examination with possible hemorrhoidectomy with Dr. Crowell at 2 pm today - Cont. PPI with BID dosing - Monitor labs - If hemoglobin appears to be stable for 24-48 hours with no signs of any active bleeding I would think at that point patient may be discharged to follow up with GI on an outpatient basis - Capsule endoscopy as outpatient - Supportive care - Further recommendations to follow based on results of above - PT seen and examined by Dr. Domingo and myself and this note is written on his behalf (Joanie Espinoza) Physician Comments Patient seen and examined Agree with above Continue with current supportive care Monitor labs Recommend outpatient capsule endoscopy (Jae Domingo MD) Joanie Espinoza Jul 19, 2017 11:15 Jae Domingo MD Jul 19, 2017 21:44
--- NOTE | 2017-07-19 11:19 | HHI.PR ---
Subjective Remarks in no acute distress. no further active GI bleed since last night. has some abdominal pain. Objective Vitals Vital Signs Date Time Temp Pulse Resp B/P (MAP) Pulse Ox O2 Delivery O2 Flow Rate FiO2 07/19/17 08:00 97.6 77 17 151/95 (113) 99 07/19/17 04:00 96.7 76 16 138/84 (102) 07/19/17 00:00 98.5 70 17 152/88 (109) 98 07/18/17 19:00 97.6 66 16 159/83 (108) 99 07/18/17 16:30 97.5 72 16 153/92 (112) 98 07/18/17 11:45 98.5 68 16 153/96 (115) 100 I/O 07/18/17 07/18/17 07/18/17 07/19/17 07/19/17 07/19/17 07:00 15:00 23:00 07:00 15:00 23:00 Intake Total 240 ml 480 ml 260 ml Balance 240 ml 480 ml 260 ml Intake Oral 240 ml 480 ml 260 ml # Voids 2 3 3 # Bowel Movements 0 0 0 Result Diagram: 07/18/17 0829 07/18/17 0829 Imaging Last Impressions GI Bleed Scan Nuclear Medicine 07/15/17 0000 Signed Impressions: Service Date/Time: July 12:17 - CONCLUSION: No evidence of acute gastrointestinal bleed Ajith Peter MD Small Bowel X-Ray 07/14/17 0000 Signed Impressions: Service Date/Time: Friday, July 14, 2017 16:15 - CONCLUSION: Unremarkable small bowel examination. Isaac Mcghee MD Abdomen/Pelvis CT 07/12/17 1213 Signed Impressions: Service Date/Time: Wednesday, July 12, 2017 13:20 - CONCLUSION: Mild fatty replacement to the liver. There is no free air or obstruction. I see no suspicious abdominal masses. Fernando Waller MD FACR Objective Remarks GENERAL: This is a well-nourished, well-developed patient, in no apparent distress. CARDIOVASCULAR: Regular rate and regular rhythm without murmurs, gallops, or rubs. RESPIRATORY: Clear to auscultation. Breath sounds equal bilaterally. No wheezes , rales, or rhonchi. GASTROINTESTINAL: Abdomen soft, with generalized tenderness, nondistended. Normal, active bowel sounds MUSCULOSKELETAL: Extremities without clubbing, cyanosis, or edema. NEURO: Alert & Oriented x4 to person, place, time, situation. Moves all ext x4 Procedures EGD Medications and IVs Current Medications Sodium Chloride 1,000 ml @ 125 mls/hr Q8H IV Last administered on 07/12/17 12 :22; Start 07/12/17 at 12:13; Stop 07/12/17 at 12:53; Status DC Sodium Chloride (NS Flush) 2 ml UNSCH PRN IVF FLUSH AFTER USING IV ACCESS Last administered on 07/16/17 19:41; Start 07/12/17 at 12:15 Sodium Chloride 250 ml @ 15 mls/hr ONCE ONCE IV Last administered on 13:00; Start 07/12/17 at 13:00; Stop 07/13/17 at 05:39; Status DC Hydromorphone HCl (Dilaudid Pf Inj) 0.5 mg ONCE ONCE IV PUSH Last administered on 07/12/17 13:53; Start 07/12/17 at 13:00; Stop 07/12/17 at 13:01 ; Status DC Ondansetron HCl (Zofran Inj) 4 mg ONCE ONCE IV PUSH Last administered on 12:59; Start 07/12/17 at 13:00; Stop 07/12/17 at 13:01; Status DC Sodium Chloride 1,000 ml @ 999 mls/hr BOLUS ONCE IV Last administered on 07/12 12:56; Start 07/12/17 at 13:00; Stop 07/12/17 at 14:00; Status DC Pantoprazole Sodium 80 mg/ Sodium Chloride 35 ml @ 420 mls/hr Q5M ONCE IV Last administered on 07/12/17 13:17; Start 07/12/17 at 13:07; Stop 07/12/17 at 13:11; Status DC Pantoprazole Sodium 80 mg/ Sodium Chloride 100 ml @ 10 mls/hr Q10H IV Last administered on 07/14/17 08:11; Start 07/12/17 at 13:07; Stop 07/14/17 at 17: 00; Status DC Hydromorphone HCl (Dilaudid Pf Inj) 0.5 mg Q4H PRN IV PUSH pain Last administered on 07/14/17 16:22; Start 07/12/17 at 15:45; Stop 07/14/17 at 17: 59; Status DC Flumazenil (Romazicon Inj) 0.2 mg Q1M PRN IV PUSH SEE LABEL COMMENTS; Start at 15:45 Lorazepam (Ativan) 1 mg Q4H PRN PO CIWA 8 - 10; Start 07/12/17 at 15:45 Lorazepam (Ativan Inj) 1 mg Q4H PRN IV PUSH CIWA 8 - 10; Start 07/12/17 at 15: 45 Lorazepam (Ativan) 2 mg Q2H PRN PO CIWA 11-14; Start 07/12/17 at 15:45 Lorazepam (Ativan Inj) 2 mg Q2H PRN IV PUSH CIWA 11-14; Start 07/12/17 at 15:45 Lorazepam (Ativan Inj) 2 mg Q1H PRN IV PUSH CIWA 15-20; Start 07/12/17 at 15:45 Lorazepam (Ativan Inj) 2 mg Q15M PRN IV PUSH CIWA > 20; Start 07/12/17 at 15:45 Dextrose (D50w (Vial) Inj) 50 ml UNSCH PRN IV PUSH HYPOGLYCEMIA-SEE COMMENTS; Start 07/12/17 at 15:45; Stop 07/14/17 at 08:37; Status DC Glucagon (Glucagon Inj) 1 mg UNSCH PRN OTHER HYPOGLYCEMIA-SEE COMMENTS; Start 07/12/17 at 15:45; Stop 07/14/17 at 08:37; Status DC Sodium Chloride 1,000 ml @ 84 mls/hr [id number] IV Last administered on 15:25; Start 07/12/17 at 15:45; Stop 07/15/17 at 09:42; Status DC Potassium Phosphate 30 mmol/ Sodium Chloride 260 ml @ 43.333 mls/ hr ONCE ONCE IV Last administered on 07/12/17 20:19; Start 07/12/17 at 17:00; Stop at 22:59; Status DC Influenza Virus Vaccine (Flu (Quadrivalent) Vaccine Inj) 0.5 ml ONCE ONCE IM ; Start 07/13/17 at 10:00; Stop 07/13/17 at 10:01; Status DC Miscellaneous Information Patient in critical care unit? Ass... Q361D .XX Last administered on 07/12/17 22:45; Start 07/12/17 at 22:45 Chlorhexidine Gluconate (Chlorhexidine 2% Cloth) 3 pack DAILY@04 TOPICAL Last administered on 07/16/17 04:00; Start 07/13/17 at 04:00; Stop 07/17/17 at 04 :01; Status DC Chlorhexidine Gluconate (Chlorhexidine 2% Cloth) 3 pack UNSCH PRN TOPICAL HYGIENIC CARE; Start 07/12/17 at 22:45; Stop 07/17/17 at 22:32; Status DC Hydroxyzine HCl (Atarax) 10 mg ONCE ONCE PO Last administered on 07/13/17 00 :19; Start 07/13/17 at 00:00; Stop 07/13/17 at 00:08; Status DC Potassium Chloride (KCl) 40 meq ONCE ONCE PO Last administered on 07/13/17 00:13; Start 07/13/17 at 00:00; Stop 07/13/17 at 00:09; Status DC Potassium Chloride 100 ml @ 50 mls/hr Q2H IV Last administered on 07/13/17 02:12; Start 07/13/17 at 00:00; Stop 07/13/17 at 03:59; Status DC Calcium Gluconate 1 gm/Dextrose 110 ml @ 110 mls/hr ONCE ONCE IV ; Start 07/20 at 12:00; Stop 07/13/17 at 12:59; Status Cancel Calcium Gluconate 0.5 gm/Dextrose 105 ml @ 105 mls/hr ONCE ONCE IV Last administered on 07/13/17 13:00; Start 07/13/17 at 13:00; Stop 07/13/17 at 13 :59; Status DC Magnesium Citrate (Citroma Liq) 300 ml NOW ONCE PO Last administered on 14:11; Start 07/13/17 at 14:00; Stop 07/13/17 at 14:01; Status DC Magnesium Citrate (Citroma Liq) 300 ml ONCE ONCE PO Last administered on 07/13 18:00; Start 07/13/17 at 18:00; Stop 07/13/17 at 18:01; Status DC Iron Sucrose 200 mg/Sodium Chloride 110 ml @ 110 mls/hr ONCE ONCE IV Last administered on 07/13/17 18:07; Start 07/13/17 at 18:00; Stop 07/13/17 at 18 :59; Status DC Hydroxyzine HCl (Atarax) 25 mg ONCE ONCE PO Last administered on 07/13/17 23 :41; Start 07/13/17 at 23:45; Stop 07/13/17 at 23:46; Status DC Calcium Gluconate (Calcium Gluconate Inj) 1 gm ONCE ONCE IV PUSH ; Start 07/14 at 06:00; Stop 07/14/17 at 06:01; Status UNV Calcium Gluconate 1 gm/Dextrose 110 ml @ 110 mls/hr ONCE ONCE IV Last administered on 07/14/17 06:56; Start 07/14/17 at 06:15; Stop 07/14/17 at 07 :14; Status DC Thiamine HCl (Vitamin B1) 100 mg DAILY PO Last administered on 07/19/17 09:33 ; Start 07/14/17 at 09:00 Folic Acid (Folate) 1 mg DAILY PO Last administered on 07/19/17 09:33; Start 07/14/17 at 09:00 Lorazepam (Ativan Inj) 2 mg Q1HR PRN IV PUSH SEIZURES; Start 07/14/17 at 08:30 Chlordiazepoxide (Librium) 25 mg TID PRN PO SEVERE ANXIETY OR AGITATION; Start 07/14/17 at 08:30 Pantoprazole Sodium 80 mg/ Sodium Chloride 100 ml @ 10 mls/hr Q10H IV Last administered on 07/15/17 08:01; Start 07/14/17 at 18:00; Stop 07/15/17 at 09 :42; Status DC Iron Sucrose (Venofer Inj) 500 mg ONCE ONCE IV PUSH ; Start 07/14/17 at 15:45 ; Stop 07/14/17 at 15:51; Status DC Iron Sucrose 500 mg/Sodium Chloride 250 ml @ 62.5 mls/hr ONCE ONCE IV Last administered on 07/14/17 19:26; Start 07/14/17 at 18:00; Stop 07/14/17 at 21 :59; Status DC Morphine Sulfate (Msir) 15 mg Q6H PRN PO pain 4-10 Last administered on 09:33; Start 07/14/17 at 18:00 Lidocaine (L-M-X 4 Cream) 1 applic UNSCH PRN TOPICAL SEE LABEL COMMENTS; Start 07/15/17 at 07:45 Hydrocortisone Acetate (Hemorrhoidal Hc Supp) 25 mg BID RECTAL Last administered on 07/17/17 03:47; Start 07/15/17 at 09:00 Pantoprazole Sodium (Protonix) 40 mg Q12HR PO Last administered on 07/19/17 09:34; Start 07/15/17 at 09:45 Sodium Chloride 250 ml @ 15 mls/hr ONCE ONCE IV Last administered on 08:27; Start 07/16/17 at 05:00; Stop 07/16/17 at 21:39; Status DC Acetaminophen (Tylenol) 650 mg Q4H PRN PO SEE LABEL COMMENTS Last administered on 07/16/17 08:26; Start 07/16/17 at 08:00 Propofol (Diprivan 200 Mg/20 ml Inj) 100 mg STK-MED ONCE IV PUSH ; Start 07/13 at 12:02; Stop 07/16/17 at 19:00; Status DC Magnesium Citrate (Citroma Liq) 300 ml ONCE ONCE PO Last administered on 07/18 14:57; Start 07/18/17 at 15:00; Stop 07/18/17 at 15:01; Status DC Magnesium Citrate (Citroma Liq) 300 ml ONCE ONCE PO Last administered on 07/18 20:50; Start 07/18/17 at 20:00; Stop 07/18/17 at 20:01; Status DC A/P Assessment and Plan A/P 1. Anemia- 2/2 blood loss. Bleeding scan negative - GI consulted-s/p EGD showing gastritis and esophagitis which does not explain his anemia or source of bleeding sufficiently. H/H fairly stable. colorectal surgery following; plan for exam under anaesthesia today. GI f/u appreciated. 2. Elevated LFT's- stable at this rate, 2/2 fatty liver 3. Abdominal pain- oral narcotics 4. Alcohol abuse- ciwa protocol 5. DM type 2- place on SS DVT prophylaxis with SCD's. Discharge Planning pending colorectal surgery recommendations. Mely Lambert MD Jul 19, 2017 11:19
[2017-07-19] MEDS ORDERED: BUPIVACAINE/EPINEPHRINE 0.5% 50 ML VIAL ONE (15:17)
[2017-07-19] MEDS ORDERED: LIDOCAINE 1%/EPINEPHrine 1:100,000 SOLN 50 ML VIAL ONE (15:17)
[2017-07-19] MEDS ORDERED: SILVER SULFADIAZINE/LIDOCAINE CREAM 60 GM JAR RECTAL ONE (15:45)
[2017-07-19] MEDS ORDERED: *morphine SULFATE 8 MG/ML PERIprocedure ONLY ONE (16:56)
[2017-07-20] MEDS: MORPHINE SULFATE 15 MG TAB PO PRN ×3 (00:07→12:00)
[2017-07-20 00:39] VITALS: BP 145/90; PULSE 74; RESP 18; TEMP 96.6; O2SAT 98
[2017-07-20 04:13] VITALS: BP 153/82; PULSE 76; RESP 19; TEMP 96.4; O2SAT 96
[2017-07-20 07:10] LABS: HEMATOCRIT 30.5 % (39.0-51.0)
[2017-07-20 08:00] VITALS: BP 129/82; PULSE 75; RESP 18; TEMP 96.6; O2SAT 98
[2017-07-20] MEDS: THIAMINE HCL 100 MG TAB PO SCH (09:06)
[2017-07-20] MEDS: FOLIC ACID 1 MG TAB PO SCH (09:06)
[2017-07-20] MEDS: PANTOPRAZOLE SOD 40 MG DELAYED RELEASE TAB PO SCH (09:06)
--- NOTE | 2017-07-20 09:34 | HHI.PR ---
Subjective Remarks resting comfortably with no distress. abdominal pain is better. no nausea or vomiting. with minimal rectal bleed. Objective Vitals Vital Signs Date Time Temp Pulse Resp B/P (MAP) Pulse Ox O2 Delivery O2 Flow Rate FiO2 07/20/17 08:00 96.6 75 18 129/82 (98) 98 07/20/17 04:13 96.4 76 19 153/82 (105) 96 07/20/17 00:39 96.6 74 18 145/90 (108) 98 07/19/17 20:00 94 07/19/17 19:30 97.7 78 18 145/89 (107) 97 07/19/17 18:47 96.5 88 19 159/95 (116) 97 07/19/17 17:00 111 18 166/87 (113) 99 Room Air 07/19/17 16:45 108 18 141/88 (105) 100 Room Air 07/19/17 16:30 117 18 135/89 (104) 99 Room Air 07/19/17 16:27 98.0 123 18 139/87 (104) 99 Nasal Cannula 2 07/19/17 12:00 95.9 82 18 154/85 (108) 100 I/O 07/19/17 07/19/17 07/19/17 07/20/17 07/20/17 07/20/17 07:00 15:00 23:00 07:00 15:00 23:00 Intake Total 260 ml 0 ml 440 ml 480 ml Output Total 10 ml Balance 260 ml 0 ml 430 ml 480 ml Intake Oral 260 ml 0 ml 240 ml 480 ml IV Total 200 ml Estimated Blood Loss 10 ml # Voids 3 4 2 4 # Bowel Movements 0 0 0 Result Diagram: 07/20/17 0634 07/18/17 0829 Imaging Last Impressions GI Bleed Scan Nuclear Medicine 07/15/17 0000 Signed Impressions: Service Date/Time: July 12:17 - CONCLUSION: No evidence of acute gastrointestinal bleed Ajith Peter MD Small Bowel X-Ray 07/14/17 0000 Signed Impressions: Service Date/Time: Friday, July 14, 2017 16:15 - CONCLUSION: Unremarkable small bowel examination. Isaac Mcghee MD Abdomen/Pelvis CT 07/12/17 1213 Signed Impressions: Service Date/Time: Wednesday, July 12, 2017 13:20 - CONCLUSION: Mild fatty replacement to the liver. There is no free air or obstruction. I see no suspicious abdominal masses. Fernando Waller MD FACR Objective Remarks GENERAL: This is a well-nourished, well-developed patient, in no apparent distress. CARDIOVASCULAR: Regular rate and regular rhythm without murmurs, gallops, or rubs. RESPIRATORY: Clear to auscultation. Breath sounds equal bilaterally. No wheezes , rales, or rhonchi. GASTROINTESTINAL: Abdomen soft, with generalized tenderness, nondistended. Normal, active bowel sounds MUSCULOSKELETAL: Extremities without clubbing, cyanosis, or edema. NEURO: Alert & Oriented x4 to person, place, time, situation. Moves all ext x4 Procedures EGD proctoplasty Medications and IVs Current Medications Sodium Chloride 1,000 ml @ 125 mls/hr Q8H IV Last administered on 07/12/17 12 :22; Start 07/12/17 at 12:13; Stop 07/12/17 at 12:53; Status DC Sodium Chloride (NS Flush) 2 ml UNSCH PRN IVF FLUSH AFTER USING IV ACCESS Last administered on 07/16/17 19:41; Start 07/12/17 at 12:15 Sodium Chloride 250 ml @ 15 mls/hr ONCE ONCE IV Last administered on 13:00; Start 07/12/17 at 13:00; Stop 07/13/17 at 05:39; Status DC Hydromorphone HCl (Dilaudid Pf Inj) 0.5 mg ONCE ONCE IV PUSH Last administered on 07/12/17 13:53; Start 07/12/17 at 13:00; Stop 07/12/17 at 13:01 ; Status DC Ondansetron HCl (Zofran Inj) 4 mg ONCE ONCE IV PUSH Last administered on 12:59; Start 07/12/17 at 13:00; Stop 07/12/17 at 13:01; Status DC Sodium Chloride 1,000 ml @ 999 mls/hr BOLUS ONCE IV Last administered on 07/12 12:56; Start 07/12/17 at 13:00; Stop 07/12/17 at 14:00; Status DC Pantoprazole Sodium 80 mg/ Sodium Chloride 35 ml @ 420 mls/hr Q5M ONCE IV Last administered on 07/12/17 13:17; Start 07/12/17 at 13:07; Stop 07/12/17 at 13:11; Status DC Pantoprazole Sodium 80 mg/ Sodium Chloride 100 ml @ 10 mls/hr Q10H IV Last administered on 07/14/17 08:11; Start 07/12/17 at 13:07; Stop 07/14/17 at 17: 00; Status DC Hydromorphone HCl (Dilaudid Pf Inj) 0.5 mg Q4H PRN IV PUSH pain Last administered on 07/14/17 16:22; Start 07/12/17 at 15:45; Stop 07/14/17 at 17: 59; Status DC Flumazenil (Romazicon Inj) 0.2 mg Q1M PRN IV PUSH SEE LABEL COMMENTS; Start at 15:45 Lorazepam (Ativan) 1 mg Q4H PRN PO CIWA 8 - 10; Start 07/12/17 at 15:45 Lorazepam (Ativan Inj) 1 mg Q4H PRN IV PUSH CIWA 8 - 10; Start 07/12/17 at 15: 45 Lorazepam (Ativan) 2 mg Q2H PRN PO CIWA 11-14; Start 07/12/17 at 15:45 Lorazepam (Ativan Inj) 2 mg Q2H PRN IV PUSH CIWA 11-14; Start 07/12/17 at 15:45 Lorazepam (Ativan Inj) 2 mg Q1H PRN IV PUSH CIWA 15-20; Start 07/12/17 at 15:45 Lorazepam (Ativan Inj) 2 mg Q15M PRN IV PUSH CIWA > 20; Start 07/12/17 at 15:45 Dextrose (D50w (Vial) Inj) 50 ml UNSCH PRN IV PUSH HYPOGLYCEMIA-SEE COMMENTS; Start 07/12/17 at 15:45; Stop 07/14/17 at 08:37; Status DC Glucagon (Glucagon Inj) 1 mg UNSCH PRN OTHER HYPOGLYCEMIA-SEE COMMENTS; Start 07/12/17 at 15:45; Stop 07/14/17 at 08:37; Status DC Sodium Chloride 1,000 ml @ 84 mls/hr [id number] IV Last administered on 15:25; Start 07/12/17 at 15:45; Stop 07/15/17 at 09:42; Status DC Potassium Phosphate 30 mmol/ Sodium Chloride 260 ml @ 43.333 mls/ hr ONCE ONCE IV Last administered on 07/12/17 20:19; Start 07/12/17 at 17:00; Stop at 22:59; Status DC Influenza Virus Vaccine (Flu (Quadrivalent) Vaccine Inj) 0.5 ml ONCE ONCE IM ; Start 07/13/17 at 10:00; Stop 07/13/17 at 10:01; Status DC Miscellaneous Information Patient in critical care unit? Ass... [id number] .XX Last administered on 07/12/17 22:45; Start 07/12/17 at 22:45 Chlorhexidine Gluconate (Chlorhexidine 2% Cloth) 3 pack DAILY@04 TOPICAL Last administered on 07/16/17 04:00; Start 07/13/17 at 04:00; Stop 07/17/17 at 04 :01; Status DC Chlorhexidine Gluconate (Chlorhexidine 2% Cloth) 3 pack UNSCH PRN TOPICAL HYGIENIC CARE; Start 07/12/17 at 22:45; Stop 07/17/17 at 22:32; Status DC Hydroxyzine HCl (Atarax) 10 mg ONCE ONCE PO Last administered on 07/13/17 00 :19; Start 07/13/17 at 00:00; Stop 07/13/17 at 00:08; Status DC Potassium Chloride (KCl) 40 meq ONCE ONCE PO Last administered on 07/13/17 00:13; Start 07/13/17 at 00:00; Stop 07/13/17 at 00:09; Status DC Potassium Chloride 100 ml @ 50 mls/hr Q2H IV Last administered on 07/13/17 02:12; Start 07/13/17 at 00:00; Stop 07/13/17 at 03:59; Status DC Calcium Gluconate 1 gm/Dextrose 110 ml @ 110 mls/hr ONCE ONCE IV ; Start 07/20 at 12:00; Stop 07/13/17 at 12:59; Status Cancel Calcium Gluconate 0.5 gm/Dextrose 105 ml @ 105 mls/hr ONCE ONCE IV Last administered on 07/13/17 13:00; Start 07/13/17 at 13:00; Stop 07/13/17 at 13 :59; Status DC Magnesium Citrate (Citroma Liq) 300 ml NOW ONCE PO Last administered on 14:11; Start 07/13/17 at 14:00; Stop 07/13/17 at 14:01; Status DC Magnesium Citrate (Citroma Liq) 300 ml ONCE ONCE PO Last administered on 07/13 18:00; Start 07/13/17 at 18:00; Stop 07/13/17 at 18:01; Status DC Iron Sucrose 200 mg/Sodium Chloride 110 ml @ 110 mls/hr ONCE ONCE IV Last administered on 07/13/17 18:07; Start 07/13/17 at 18:00; Stop 07/13/17 at 18 :59; Status DC Hydroxyzine HCl (Atarax) 25 mg ONCE ONCE PO Last administered on 07/13/17 23 :41; Start 07/13/17 at 23:45; Stop 07/13/17 at 23:46; Status DC Calcium Gluconate (Calcium Gluconate Inj) 1 gm ONCE ONCE IV PUSH ; Start 07/14 at 06:00; Stop 07/14/17 at 06:01; Status UNV Calcium Gluconate 1 gm/Dextrose 110 ml @ 110 mls/hr ONCE ONCE IV Last administered on 07/14/17 06:56; Start 07/14/17 at 06:15; Stop 07/14/17 at 07 :14; Status DC Thiamine HCl (Vitamin B1) 100 mg DAILY PO Last administered on 07/20/17 09:06 ; Start 07/14/17 at 09:00 Folic Acid (Folate) 1 mg DAILY PO Last administered on 07/20/17 09:06; Start 07/14/17 at 09:00 Lorazepam (Ativan Inj) 2 mg Q1HR PRN IV PUSH SEIZURES; Start 07/14/17 at 08:30 Chlordiazepoxide (Librium) 25 mg TID PRN PO SEVERE ANXIETY OR AGITATION; Start 07/14/17 at 08:30 Pantoprazole Sodium 80 mg/ Sodium Chloride 100 ml @ 10 mls/hr Q10H IV Last administered on 07/15/17 08:01; Start 07/14/17 at 18:00; Stop 07/15/17 at 09 :42; Status DC Iron Sucrose (Venofer Inj) 500 mg ONCE ONCE IV PUSH ; Start 07/14/17 at 15:45 ; Stop 07/14/17 at 15:51; Status DC Iron Sucrose 500 mg/Sodium Chloride 250 ml @ 62.5 mls/hr ONCE ONCE IV Last administered on 07/14/17 19:26; Start 07/14/17 at 18:00; Stop 07/14/17 at 21 :59; Status DC Morphine Sulfate (Msir) 15 mg Q6H PRN PO pain 4-10 Last administered on 05:52; Start 07/14/17 at 18:00 Lidocaine (L-M-X 4 Cream) 1 applic UNSCH PRN TOPICAL SEE LABEL COMMENTS; Start 07/15/17 at 07:45 Hydrocortisone Acetate (Hemorrhoidal Hc Supp) 25 mg BID RECTAL Last administered on 07/17/17 03:47; Start 07/15/17 at 09:00; Stop 07/19/17 at 16 :37; Status DC Pantoprazole Sodium (Protonix) 40 mg Q12HR PO Last administered on 07/20/17 09:06; Start 07/15/17 at 09:45 Sodium Chloride 250 ml @ 15 mls/hr ONCE ONCE IV Last administered on 08:27; Start 07/16/17 at 05:00; Stop 07/16/17 at 21:39; Status DC Acetaminophen (Tylenol) 650 mg Q4H PRN PO SEE LABEL COMMENTS Last administered on 07/16/17 08:26; Start 07/16/17 at 08:00 Propofol (Diprivan 200 Mg/20 ml Inj) 100 mg STK-MED ONCE IV PUSH ; Start 07/13 at 12:02; Stop 07/16/17 at 19:00; Status DC Magnesium Citrate (Citroma Liq) 300 ml ONCE ONCE PO Last administered on 07/18 14:57; Start 07/18/17 at 15:00; Stop 07/18/17 at 15:01; Status DC Magnesium Citrate (Citroma Liq) 300 ml ONCE ONCE PO Last administered on 07/18 20:50; Start 07/18/17 at 20:00; Stop 07/18/17 at 20:01; Status DC Bupivacaine HCl/ Epinephrine Bitart (Sensorcaine-Epi 0.5% 50 ml Inj) 50 ml STK- MED ONCE .ROUTE Last administered on 07/19/17 16:01; Start 07/19/17 at 15:17 ; Stop 07/19/17 at 15:18; Status DC Lidocaine/ Epinephrine (Xylocaine-Epi 1%-1:100,000 Inj) 50 ml STK-MED ONCE .ROUTE Last administered on 07/19/17 16:01; Start 07/19/17 at 15:17; Stop 07/19/17 at 15:18; Status DC Compound Med (Ritters Cream) 1 applic ONCE ONCE RECTAL Last administered on 16:01; Start 07/19/17 at 15:45; Stop 07/19/17 at 15:46; Status DC Morphine Sulfate (*morphine INJ PERIprocedure ONLY) 8 mg STK-MED ONCE .ROUTE Last administered on 07/19/17 16:56; Start 07/19/17 at 16:56; Stop 07/19/17 at 16:57; Status DC A/P Assessment and Plan A/P 1. Anemia- 2/2 blood loss. Bleeding scan negative - GI consulted-s/p EGD showing gastritis and esophagitis . H/H fairly stable. s/p proctoplasty- awaiting colorectal surgery follow-up. GI f/u appreciated. f/u as outpatient. 2. Elevated LFT's- stable at this rate, 2/2 fatty liver 3. Abdominal pain- oral narcotics 4. Alcohol abuse- [facility] protocol 5. DM type 2- place on SS DVT prophylaxis with SCD's. Discharge Planning when cleared by colorectal surgery. see med list. f/u; pcp, GI and colorectal surgery. d/w the patient and GI. time spent 32 min. Mely Lambert MD Jul 20, 2017 09:34
[2017-07-20] MEDS ORDERED: PANT40TA3 PO (09:35)
[2017-07-20] MEDS ORDERED: FERR325T8 PO ×2 (09:38→09:44)
--- NOTE | 2017-07-20 09:38 | HHI.DS ---
Discharge Summary Admission Date Jul 12, 2017 at 14:19 Discharge Date: Jul 20, 2017 Admitting Diagnosis GI BLEED/SYMPTOMATIC ANEMIA (1) Anal fissure ICD Code: K60.2 - Anal fissure, unspecified Diagnosis: Principal Procedures EGD proctoplasty Brief History - From Admission Mr. Hernandez is a 42-year-old gentleman with history of alcohol use who came to the emergency room with increased fatigue, weakness and tiredness. The patient was noted to have significant anemia. Also, he reports having significant weight loss, approximately 40 pounds, for the last several months. The patient states he has decreased appetite, unable to tolerate food. He has a lot of reflux and regurgitation and poor appetite. CBC/BMP: 07/20/17 0634 07/18/17 0829 Significant Findings Laboratory Tests Test 07/18/17 08:29 07/20/17 06:34 Red Blood Count 3.76 MIL/MM3 (4.50-5.90) Hemoglobin 9.9 GM/DL (13.0-17.0) 9.9 GM/DL (13.0-17.0) Hematocrit 31.2 % (39.0-51.0) 30.5 % (39.0-51.0) Mean Corpuscular Hemoglobin 26.4 PG (27.0-34.0) Mean Corpuscular Hemoglobin Concent 31.9 % (32.0-36.0) Red Cell Distribution Width 25.0 % (11.6-17.2) Platelet Count 106 TH/MM3 (150-450) Neutrophils (%) (Auto) 76.0 % (16.0-70.0) Monocytes (%) (Auto) 9.2 % (0.0-8.0) Blood Urea Nitrogen 6 MG/DL (7-18) Albumin 3.1 GM/DL (3.4-5.0) Aspartate Amino Transf (AST/SGOT) 41 U/L (15-37) Total Bilirubin 6.2 MG/DL (0.2-1.0) Potassium Level 3.4 MEQ/L (3.5-5.1) Carbon Dioxide Level 20.3 MEQ/L (21.0-32.0) Estimat Glomerular Filtration Rate 75 ML/MIN (>89) Imaging Last Impressions GI Bleed Scan Nuclear Medicine 07/15/17 0000 Signed Impressions: Service Date/Time: July 12:17 - CONCLUSION: No evidence of acute gastrointestinal bleed Ajith Peter MD Small Bowel X-Ray 07/14/17 0000 Signed Impressions: Service Date/Time: Friday, July 14, 2017 16:15 - CONCLUSION: Unremarkable small bowel examination. Isaac Mcghee MD Abdomen/Pelvis CT 07/12/17 1213 Signed Impressions: Service Date/Time: Wednesday, July 12, 2017 13:20 - CONCLUSION: Mild fatty replacement to the liver. There is no free air or obstruction. I see no suspicious abdominal masses. Fernando Waller MD FACR PE at Discharge GENERAL: This is a well-nourished, well-developed patient, in no apparent distress. CARDIOVASCULAR: Regular rate and regular rhythm without murmurs, gallops, or rubs. RESPIRATORY: Clear to auscultation. Breath sounds equal bilaterally. No wheezes , rales, or rhonchi. GASTROINTESTINAL: Abdomen soft, with generalized tenderness, nondistended. Normal, active bowel sounds MUSCULOSKELETAL: Extremities without clubbing, cyanosis, or edema. NEURO: Alert & Oriented x4 to person, place, time, situation. Moves all ext x4 Hospital Course . Anemia- 2/2 blood loss. Bleeding scan negative - GI consulted-s/p EGD showing gastritis and esophagitis . H/H fairly stable. s/p proctoplasty- awaiting colorectal surgery follow-up. GI f/u appreciated. f/u as outpatient. discharge on iron supplement. 2. Elevated LFT's- stable at this rate, 2/2 fatty liver 3. Abdominal pain- oral narcotics 4. Alcohol abuse- [facility] protocol 5. DM type 2- place on SS Pt Condition on Discharge: Fair Discharge Disposition: Discharge Home Discharge Time: > 30 minutes Discharge Instructions DIET: Follow Instructions for: Heart Healthy Diet, Diabetic Diet Activities you can perform: Regular-No Restrictions Follow up Referrals: Appointment for Follow Up - 2 Weeks with Blue Crowell MD Gastroenterology PCP Follow-up New Medications: Ferrous Sulfate (Ferrous Sulfate) 325 Mg (65 Mg Iron) Tablet 325 MG PO DAILY for Nutritional Supplement for 30 Days, TAB 0 Refills Sucralfate (Carafate) 1 Gram Tab 1 GM PO TID for Ulcer Prevention, #90 TAB 0 Refills On empty stomach Pantoprazole (Pantoprazole) 40 Mg Tab 40 MG PO Q12HR for ppi for 30 Days, TAB 0 Refills Continued Medications: Hydrochlorothiazide (Hydrochlorothiazide) 12.5 Mg Cap Unknown Dose PO DIRECTED, #60 CAP 0 Refills Lisinopril (Lisinopril) 2.5 Mg Tab Unknown Dose PO DAILY, #30 TAB 0 Refills Metformin (Metformin) 1,000 Mg Tab Unknown Dose PO DIRECTED for Blood Sugar Management, #60 TAB 0 Refills Simvastatin (Simvastatin) 5 Mg Tab Unknown Dose PO DAILY for Cholesterol Management, #30 TAB 0 Refills [Vit D] () Mely Lambert MD Jul 20, 2017 09:38
[2017-07-20] MEDS ORDERED: CARA1TAB6 PO (09:40)
--- NOTE | 2017-07-20 11:23 | HHI.PR ---
Addendum To [facility] Progress Not Reason for addendum: Additonal documentation (d/w - cleared for discharge; will dc home.) Mely Lambert MD Jul 20, 2017 11:23
[2017-07-20 12:00] VITALS: BP 127/78; PULSE 80; RESP 18; TEMP 96.8; O2SAT 98
[2017-07-20] MEDS ORDERED: NORC5TAB PO ×2 (12:26→12:36)
[2017-07-20] MEDS ORDERED: MULTTAB67 PO (12:37)
--- NOTE | 2017-07-20 23:21 | MP ---
cc: BAUTISTA MILLER M.D. DATE OF SURGERY: 07/19/2017 PREOPERATIVE DIAGNOSIS: Rectal bleeding. Anemia, possible hemorrhoidal bleeding. PROCEDURE: Examination under anesthesia with proctoplasty and debridement of posterior midline anal fissure. POSTOPERATIVE DIAGNOSIS: Bleeding anal fissure. Benign grade 1 hemorrhoids. SURGEON: Dr. Bautista Miller DESCRIPTION OF PROCEDURE: The patient was placed in the supine position. After adequate general anesthesia he was turned and placed in the prone jackknife position. The buttocks taped apart, prepped with Betadine solution and draped in the usual sterile fashion. Local anesthesia was obtained by injection of 1% Xylocaine / 0.5% Marcaine with epinephrine. The anal canal was gently dilated and half-avalos retractor inserted. Examination revealed very deep inflammatory type fissure in the posterior midline which was bleeding quite easily and with minimal manipulation the remainder of the hemorrhoidal cushions were examined and felt to be fairly small and without evidence of any fresh bleeding. They did not prolapse very much and there were no ulcerations or thrombosis. No other fistulas were identified. Digital exam revealed good muscle tone and no evidence of bleeding from the rectal vault. The mucosa did appear to be normal without inflammatory changes. The anal canal was irrigated and again the only bleeding sites that were identified were in the posterior midline. There did appear to be a pecten band which was divided in the left lateral position with an 11 blade opening up the anal rectal lumen. The inflammatory tissue in the posterior midline was excised obtaining hemostasis with electrocautery as necessary. The remaining tissue did not appear to be as friable and was not was bleeding at the end of the procedure. Small Surgicel dressing placed in the anal canal and a large fluff dressing placed externally. The patient tolerated the procedure quite well and was brought to recovery room in stable condition. Sponge and needle counts were correct at the end of the procedure. MD LIZ Reddy/ANYA /10:04 PM /11:06 PM
== END 2017-07-20 14:25 | disposition home or self-care (01) | DRG 348 ==
LOC: PHED 11:41 → PHEDA 14:19 → PHICU 16:22 → N06B 07-17 16:03
PROVIDERS: ADMIT Internal Medicine; ATTEND Internal Medicine
PROC: 30233N1 Transfusion of Nonautologous Red Blood Cells into Peripheral Vein, Percutaneous Approach (ICD-10-PCS; 2017-07-12)
PROC: 0DB98ZX Excision of Duodenum, Via Natural or Artificial Opening Endoscopic, Diagnostic (ICD-10-PCS; 2017-07-13)
PROC: 0DB68ZX Excision of Stomach, Via Natural or Artificial Opening Endoscopic, Diagnostic (ICD-10-PCS; 2017-07-13)
PROC: 0DB38ZX Excision of Lower Esophagus, Via Natural or Artificial Opening Endoscopic, Diagnostic (ICD-10-PCS; 2017-07-13)
PROC: 0DBQ7ZZ Excision of Anus, Via Natural or Artificial Opening (ICD-10-PCS; principal; 2017-07-19 15:46)
DX: K92.1 Melena (principal); E87.1 Hypo-osmolality and hyponatremia; N17.9 Acute kidney failure, unspecified; D69.6 Thrombocytopenia, unspecified; I95.9 Hypotension, unspecified; D62 Acute posthemorrhagic anemia; K76.0 Fatty (change of) liver, not elsewhere classified; I10 Essential (primary) hypertension; E11.9 Type 2 diabetes mellitus without complications; K21.0 Gastro-esophageal reflux disease with esophagitis; K29.70 Gastritis, unspecified, without bleeding; K64.8 Other hemorrhoids; K31.9 Disease of stomach and duodenum, unspecified; K44.9 Diaphragmatic hernia without obstruction or gangrene; K60.2 Anal fissure, unspecified; E87.6 Hypokalemia; E78.5 Hyperlipidemia, unspecified; E83.51 Hypocalcemia; R63.4 Abnormal weight loss; F10.10 Alcohol abuse, uncomplicated; R74.8 Abnormal levels of other serum enzymes; F32.9 Major depressive disorder, single episode, unspecified; F41.9 Anxiety disorder, unspecified; Z68.25 Body mass index [BMI] 25.0-25.9, adult; Z79.84 Long term (current) use of oral hypoglycemic drugs; Z82.49 Family history of ischemic heart disease and other diseases of the circulatory system; Z83.3 Family history of diabetes mellitus; Z87.891 Personal history of nicotine dependence
CPT/HCPCS: 36430; 74176; 74250; 78278; 80048; 80053; 80074; 82607; 82728; 82746; 82784; 82948; 83010; 83516; 83540; 83550; 83615; 83690; 83735; 84100; 85014; 85018; 85025; 85060; 85610; 85730; 86850; 86900; 86901; 86920; 87641; 88305; 93005; 96361; 96365; 96375; A9560; C9113; J0610; J1100; J1170; J1756; J2250; J2270; J2405; J2710; J3010; J3480; J7030; J7050; P9016